=== PATIENT | male | born 1940 | race Caucasian/White ===

== ENCOUNTER 2019-04-16 10:16 | Emergency (ER) | payer MEDICARE, SELFPAY ==
[2019-04-16 10:17] VITALS: BP 128/89; PULSE 62; RESP 17; TEMP 36.2; O2SAT 97; BMI 21.7
--- NOTE | 2019-04-16 10:34 | VDLE_ITS ---
Reason For Study: Swelling RIGHT LEFT GSV is normal. CFV is compressible, spontaneous, phasic, CFV is compressible, spontaneous, phasic, competent, and demonstrates normal competent and demonstrates normal augmentation. augmentation. CFV at bifurcation is partially compressible. FV prox is partially compressible with minimal flow noted. Acute deep vein thrombosis is noted in the mid/distal FV, PopV, T/P Trunk, PTV, PeroV, GastrocV, SoleusV. Procedure Exam performed portable in ED. A preliminary report was called and/or faxed to Dr. Stahl. Interpretation Summary Acute deep vein thrombosis is noted in the right femoral vein. Acute deep vein thrombosis is noted in the right popliteal vein. Acute deep vein thrombosis is noted in the right tibio-peroneal trunk. Acute deep vein thrombosis is noted in the right posterior tibial vein. Acute deep vein thrombosis is noted in the right peroneal vein. Acute deep vein thrombosis is noted in the right gastrocnemius vein. Acute deep vein thrombosis is noted in the right soleus vein. The right common femoral vein is patent, compressible, and competent. The right greater saphenous vein appears patent and compressible segmentally. Ordering Physician: Oj Stahl Performed By: Nhung Boykin RVT
--- NOTE | 2019-04-16 10:37 | ED.DCSUM_ITS ---
- ER Visit Summary Date of Service: 04/16/19 Chief Complaint: Right leg pain History of Present Illness: The patient is a 78 M with right leg pain, swelling, and redness. Symptoms started gradually about a week ago. They will started about the same time. He never had this before. Nothing seemed to bring it on. He was previously well. Denies any recent surgery, immobilization, or travel. Denies any history of blood clots. Denies associated symptoms like wounds, fevers, shortness of breath, cough, chest pain, hemoptysis. Denies blood thinner use. Denies trauma. Physical Examination: Afebrile and vital signs unremarkable. Alert and oriented. No acute distress. Breathing comfortably. Right lower extremity shows asymmetric edema below the knee. There is also some erythema to his dorsal foot and ankle primarily but it does extend further proximally just distal to the knee. No other streaking or redness. Pulses are strong and equal. Good range of motion. No deformities. No bony tenderness. Calves slightly tender. Test Results: Ultrasound pending. Emergency Department Course and Treatment: We will check for DVT. This may also be an early cellulitis. Nothing to suggest joint or bone pathology. He is neurovascularly intact. Will reassess. Patient has a DVT starting with a partial occlusion of his common femoral and then distally. His CBC and BMP were unremarkable. INR and PTT were normal. Patient's HASBLED score was 1. Risks of inpatient versus outpatient therapy discussed. Patient would like to try outpatient therapy. He does not have a local doctor. I spoke with Dr. Houser who will follow up and evaluate for an underlying process. Risks of Eliquis were discussed. Patient will return right away for any complications. Plan will be discharged on Eliquis. Treatment Plan: As above Disposition: Discharge Impression: 1. Right lower extremity DVT This note was generated with [employer] dictation software. It may contain incorrect words, spelling, and punctuation that were not noted in review of the chart prior to signing ED Disposition - Plan for ED Patient: [facility] [Primary Care Provider] -
[2019-04-16 11:28] LABS: Absolute Lymphocyte Count 2.73 X10^3/ul (0.83-4.51); Absolute Neutrophil Count 5.1 X10^3/uL (2.0-7.7); Basophil# 0.05 X10^3/uL; Basophil% 0.6 % (0-1); Eosinophil# 0.18 X10^3/uL; Hematocrit 43.5 % (40-54); Hemoglobin 14.8 g/dl (13.0-16.5); Lymphocyte # 2.73 X10^3/ul (4.0); Lymphocyte % 30.7 % (19-41); Mean Corpuscular Hgb 30.5 pg (27.0-32.0); Mean Corpuscular Volume 89.5 fL (80-94); Mean Platelet Vol. 9.8 fl (6.2-12.0); Monocyte# 0.81 X10^3/uL; Monocyte% 9.1 % (0-10); Neutrophil # 5.09 X10^3/uL (2.7-7.7); Neutrophil % 57.2 % (47-70); Platelet Count 255 K/mm3 (150-450); RBC Distribution Width CV 12.6 % (11.6-14.6); RBC Distribution Width SD 40.5 fl (35.1-43.9); Red Blood Count 4.86 M/mm3 (4.6-6.2); White Blood Count 8.9 K/mm3 (4.4-11.0)
[2019-04-16 11:29] LABS: POSITIVE COUNT NO; POSITIVE DIFFERENTIAL NO; POSITIVE MORPHOLOGY NO
[2019-04-16 11:38] LABS: International Normalized Ratio 1.1; Partial Thromboplast Time 29.2 Seconds (24.1-36.2); Prothrombin Time (Protime)PT. 14.2 SECONDS (11.7-14.9)
[2019-04-16 11:41] LABS: Anion Gap 7 (5-15); BUN 17 mg/dL (7-18); BUN/Creat Ratio 18.7 RATIO (10-20); Calcium,Total 8.8 mg/dL (8.5-10.1); Chloride 107 mmol/L (98-107); Creatinine, Serum 0.91 mg/dL (0.70-1.30); EST Glomerular Filtration Rate 85 mL/min (>60); Est Glom Filt Rate - Afr Amer 103 mL/min (>60); Estimated Creatinine Clearance 66.46 ml/min; Glucose 115 mg/dL (74-106); Potassium 4.5 mmol/L (3.5-5.1); Sodium Level 140 mmol/L (136-145)
[2019-04-16 12:12] VITALS: BP 151/88; PULSE 57; RESP 15; O2SAT 97
--- NOTE | 2019-04-16 12:12 | ED.DEP ---
ED Disposition - Plan for ED Patient: Instructions: Treating Deep Vein Thrombosis Prescriptions: Apixaban [Eliquis] 5 mg PO BID 30 Days #74 tab Prescription Printed Referrals: Daquan Houser MD [NON-STAFF] -
== END 2019-04-16 12:39 | disposition home or self-care (01) ==
LOC: ED 10:41
PROVIDERS: Emergency Provider Emergency Medicine
DX: I82.411 Acute embolism and thrombosis of right femoral vein (principal); Z87.891 Personal history of nicotine dependence
CPT/HCPCS: 80048; 85025; 85610; 85730; 93971; 99283; A4216

== ENCOUNTER → 2019-05-03 | Outpatient (CLI) | payer MEDICARE, OTHER, SELFPAY ==
[2019-04-16 10:17] VITALS: BMI 21.7
[2019-05-03 18:02] LABS: Vitamin B12 564 pg/mL (211-911)
[2019-05-03 18:39] LABS: AST(SGOT) 20 U/L (15-37); Alanine Aminotransfer ALT/SGPT 25 U/L (16-61); Albumin, Serum 3.7 g/dL (3.2-5.0); Alkaline Phosphatase 66 U/L (45-117); Anion Gap 6 (5-15); BUN 16 mg/dL (7-18); BUN/Creat Ratio 16.5 RATIO (10-20); Calcium,Total 9.3 mg/dL (8.5-10.1); Chloride 106 mmol/L (98-107); Creatinine, Serum 0.97 mg/dL (0.70-1.30); EST Glomerular Filtration Rate 79 mL/min (>60); Est Glom Filt Rate - Afr Amer 96 mL/min (>60); Globulin 3.8 g/dL (2.2-4.2); Glucose 105 mg/dL (74-106); Potassium 4.2 mmol/L (3.5-5.1); Protein, Total 7.5 g/dL (6.4-8.2); Sodium Level 136 mmol/L (136-145); Thyroid Stim Hormone (TSH) 3.85 uIU/mL (0.358-3.74)
== END | disposition home or self-care (01) ==
LOC: MFPLAB 15:00
PROVIDERS: Family Provider Family Medicine; PCP Family Medicine; Referring Provider Family Medicine; Visit Provider Family Medicine
DX: R20.2 Paresthesia of skin (principal)
CPT/HCPCS: 36415; 80053; 82607; 82746; 84443

== ENCOUNTER → 2019-06-21 13:49 | Outpatient (CLI) | payer MEDICARE, OTHER, SELFPAY ==
[2019-06-13 15:30] VITALS: BMI 22.1
--- NOTE | 2019-06-21 13:50 | CT_ITS ---
STUDY: CT CHEST WITH CONTRAST REASON FOR EXAM: Male, 78 years old. Bladder cancer. DVT. RADIATION DOSAGE (If Supplied By Facility): CTDIvol = ( 12.05 ) mGy, DLP = ( 792.84 ) mGycm TECHNIQUE: Transaxial imaging was performed following intravenous administration of 100 IV Isovue 300. Individualized dose optimization techniques were used for this CT. COMPARISON: None. FINDINGS: There is hyperinflation of the lungs consistent with chronic obstructive lung disease (COPD). Small calcified plaques are seen along the anterior mid left hemithorax. There are no infiltrates or effusions seen. There is no demonstrated pleural abnormality. Normal heart and pericardium. Normal mediastinum. Normal hilar regions. Normal enhanced pulmonary arteries. Normal aorta arch and descending thoracic aorta. There are no demonstrated pulmonary emboli. Normal osseous structures. See separate report for CT of the abdomen and pelvis. CT/Chest WITH Contrast IMPRESSION: There are findings consistent with COPD. There is no evidence of acute chest disease. Electronically Signed: Christos Martines MD at 21:44 EDT , Service support ,
--- NOTE | 2019-06-21 13:50 | CT_ITS ---
STUDY: CT ABDOMEN AND PELVIS WITH CONTRAST REASON FOR EXAM: Male, 78 years old. Bladder cancer. RADIATION DOSAGE (If Supplied By Facility): CTDIvol = ( 12.05 ) mGy, DLP = ( 792.84 ) mGycm TECHNIQUE: Transaxial images were obtained from the dome of the diaphragm to the symphysis pubis with oral contrast. 100 IV/Oral Isovue 300 was administered. Sagittal and coronal images were reconstructed. Individualized dose optimization techniques were used for this CT. COMPARISON: None. FINDINGS: The visualized lung bases are unremarkable. The visualized portions of the heart are within normal limits. Normal liver. There are multiple gallstones. Normal spleen. Normal pancreas. Normal bilateral adrenal glands. Right kidney has a 2 mm nonobstructing mid renal stone, otherwise normal right kidney. Left kidney has a 5 mm nonobstructing mid renal stone. There is a 3.8 cm lower left renal cyst. Evaluation of the GI tract is limited by absence of oral contrast. Cannot exclude stomach wall thickening. No dilated loops of bowel or evidence for obstruction. Cannot exclude segmental thickening of the hamm of the small or large bowel. Cannot exclude enteritis or colitis. Moderate diffuse fecal retention. Severe sigmoid diverticulosis without definite diverticulitis. Appendix within normal limits. Normal abdominal aorta. Normal inferior vena cava. Normal retroperitoneum. Normal urinary bladder. There is enlargement of the prostate gland. Surgical changes seen consistent with bilateral inguinal hernia repairs. Degenerative disc disease at L5-S1, otherwise normal osseous structures. CT/Abdomen/Pelvis WITH Contrast IMPRESSION: Cholelithiasis. Nonobstructing renal stones. Marked sigmoid diverticulosis without diverticulitis. Electronically Signed: Christos Martines MD at 21:25 EDT , Service support ,
== END ==
PROVIDERS: Family Provider Family Medicine; PCP Family Medicine; Referring Provider Internal Medicine Medical Oncology; Visit Provider Internal Medicine Medical Oncology
DX: I82.409 Acute embolism and thrombosis of unspecified deep veins of unspecified lower extremity (principal); Z85.51 Personal history of malignant neoplasm of bladder
CPT/HCPCS: 71260; 74177; Q9967

== ENCOUNTER → 2019-08-01 11:01 | Outpatient (CLI) | payer MEDICARE, OTHER, SELFPAY ==
[2019-06-26 14:57] VITALS: BMI 21.9
[2019-08-01 13:22] LABS: Free T3 2.7 pg/mL (2.18-3.98); T4 Total, Thyroxin 8.2 ug/dL (4.5-12.1); Thyroid Stim Hormone (TSH) 2.53 uIU/mL (0.358-3.74)
== END ==
PROVIDERS: Family Provider Family Medicine; PCP Family Medicine; Visit Provider Family Medicine
DX: R79.89 Other specified abnormal findings of blood chemistry (principal)
CPT/HCPCS: 36415; 84436; 84443; 84481

== ENCOUNTER 2019-08-06 13:58 | Emergency (ER) | payer MEDICARE, SELFPAY ==
[2019-06-26 14:57] VITALS: BMI 21.9
[2019-08-06 14:01] VITALS: BP 167/96; PULSE 61; RESP 19; TEMP 36.4; O2SAT 98; BMI 21.7
--- NOTE | 2019-08-06 14:22 | RAD_ITS ---
STUDY: X-RAY - LEFT SHOULDER REASON FOR EXAM: Male, 79 years old. Pain and swelling following injury. TECHNIQUE: 4 view(s) of the shoulder. COMPARISON: None. FINDINGS: There is mild degenerative arthrosis of the glenohumeral articulation. There is hypertrophic osteoarthrosis of the acromioclavicular joint with inferior osseous spur formation. Normal acromion. Normal humeral head and visualized proximal humerus. Soft tissue swelling. Normal visualized pulmonary apex. RAD/Shoulder min 2 Views IMPRESSION: Soft tissue swelling. Degenerative changes. Electronically Signed: Dilip Chauhan, at 14:59 EST , Service support ,
--- NOTE | 2019-08-06 15:11 | ED.VIS.GEN ---
History of Present Illness Chief Complaint: Upper Extremity Injury Informant: Patient Onset: Today Context: Sudden Onset Timing: Continuous Narrative: Patient is an 79-year-old male currently on Eliquis for DVT that was diagnosed in April, non-provoked, presenting with left shoulder injury. Patient states his truck door swung back and hit his left shoulder. He immediately had pain and swelling. He states the swelling progressed pretty quickly over his shoulder. He has associated pain that feels like tightness. Patient denies any numbness or tingling of his left arm. He states he is right-hand dominant. He denies any other injuries or head injury. Because of the swelling and pain he came to the emergency room to be evaluated further. Past Medical History - Allergies and Home Meds Allergies/Adverse Reactions: Allergies Sulfa (Sulfonamide Antibiotics) Adverse Reaction (Verified 08/06/19 14:00) Rash Primary Care Physician: Lalo Chou MD [Primary Care Provider] - Smoking Status: Former smoker Review of Systems All systems negative except as indicated Musculoskeletal: Reports: - - left shoulder pain and swelling Physical Exam Vital Signs/Narrative: Vital Signs Temp Pulse Resp BP Pulse Ox 08/06/19 14:01 97.5 F L 61 19 H 167/96 H 98 Inital Vital Signs reviewed: Yes General: Well nourished, Well developed, No Acute Distress Head: Normocephalic, Atraumatic Eyes: Perrl, EOMI ENT: Moist mucous membranes, No rhinorrhea Neck: Supple, Nontender Cardiovascular: Regular rate, Regular rhythm, No murmurs Respiratory: No distress, CTA bilaterally, Chest nontender Abdomen: Soft, Nontender, Nondistended, Normal bowel sounds Back: Nontender, Normal Inspection Extremities: Tenderness - left shoulder , Edema - soft tissue swelling left anterior chest, 10 cm x 8 cm, nonpulsitile , - - Normal distal radial pulses Skin: Normal color, No rash. Negative for: Trauma Neurological: Alert, Oriented x3, Cranial nerves II-XII grossly intact, Normal Strength, Normal Sensation Psychological: Normal affect, Normal Mood Diagnostic/Tx/Re-eval Clinical Impression(s) from Imaging Studies Shoulder X-Ray 08/06/19 14:22 IMPRESSION: Soft tissue swelling. Degenerative changes. Electronically Signed: Dilip Chauhan, at 14:59 EST , Service support , - Medical Decision Making Is evaluated after an injury to his left shoulder. His car door swung and hit him. He x-ray shows soft tissue swelling. On exam patient has a significant hematoma that is not pulsatile. Patient is hemodynamically stable and while he has some pain at the site he is otherwise asymptomatic. Discussed with his PCP, Dr. Lalo Chou, who states his plan initially was to reevaluate the patient in a week for resolution of his DVT and possibly stop the Eliquis. Repeat ultrasound was performed today with hopes of holding his Eliquis however ultrasound shows a partially mobile right proximal femoral vein DVT. Because of this I do not think it be safe to stop his Eliquis. Discussed with Dr. Apodaca, orthopedics on-call, who recommends stopping the Eliquis if possible. He states that there is no significant tenting of the skin and does not need emergent orthopedic evaluation and the patient should be stable for follow-up with his PCP. He states he is available if needed. Dr. Chou is contacted again with the findings. He is agreeable the patient should not stop his Eliquis at this point. Patient is counseled on compression, ice and signs for return to the emergency room including expanding hematoma. Patient verbalizes agreement understand this plan. He is discharged home in stable condition. ED Disposition - Plan for ED Patient: Disposition: Home or Assisted Living Diagnosis: Traumatic hematoma of left shoulder, Deep vein thrombosis (DVT) of femoral vein of right lower extremity Instructions: Hematoma Referrals: Lalo Chou MD [Primary Care Provider] - Additional Instructions: Make sure you keep your follow-up appointment. Continue to take your Eliquis. He may take Tylenol as needed for pain. It is safe to use Aspercreme. Return to the emergency room if you feel that it is getting larger, you start to feel lightheaded or if you have weakness/numbness of your left arm/hand.
--- NOTE | 2019-08-06 15:19 | NURSING ---
PAGED DR Jerardo VACA
--- NOTE | 2019-08-06 15:26 | VDLE_ITS ---
Reason For Study: DVT RIGHT LEFT GSV is normal. GSV is normal. CFV is compressible, spontaneous, phasic, CFV is compressible, spontaneous, phasic, competent and demonstrates normal competent, and demonstrates normal augmentation. augmentation. POP V is compressible, spontaneous, phasic, FV is compressible, spontaneous, phasic, competent and demonstrates normal competent and demonstrates normal augmentation. augmentation. T/P Trunk is compressible. POP V is compressible, spontaneous, phasic, PTV is compressible. competent and demonstrates normal RT PerV is compressible. augmentation. Rt FV prox/mid is partially compressible T/P Trunk is compressible. consistent with acute DVT, DVT appears PTV is compressible. unstable/slightly mobile. LT PerV is compressible. Procedure Exam performed portable in ED. A preliminary report was called and/or faxed to Dr. Cornelius. Interpretation Summary Acute deep venous thrombosis right proximal to mid femoral vein with mobile thrombus. No evidence for acute deep venous thrombosis left lower extremity Patent and compressible bilateral great saphenous veins Ordering Physician: Fiona Cornelius Referring Physician: Lalo Chou Performed By: Cece Murray, MARIA G, RVT
[2019-08-06] MEDS: Acetaminophen 500 MG Tablet PO (16:17)
== END 2019-08-06 16:54 | disposition home or self-care (01) ==
PROVIDERS: Emergency Provider Emergency Medicine; Family Provider Family Medicine; PCP Family Medicine
DX: S40.012A Contusion of left shoulder, initial encounter (principal); I82.411 Acute embolism and thrombosis of right femoral vein; W22.8XXA Striking against or struck by other objects, initial encounter; Y93.9 Activity, unspecified; Y92.9 Unspecified place or not applicable; Z79.01 Long term (current) use of anticoagulants; Z87.891 Personal history of nicotine dependence
CPT/HCPCS: 73030; 93970; 99282

== ENCOUNTER → 2019-10-23 07:37 | Outpatient (CLI) | payer MEDICARE, SELFPAY ==
--- NOTE | 2019-10-23 07:41 | VDLE_ITS ---
Reason For Study: DVT RIGHT LEFT GSV is normal. CFV is compressible, spontaneous, phasic, CFV is compressible, spontaneous, phasic, competent, and demonstrates normal competent and demonstrates normal augmentation. augmentation. FV is compressible, spontaneous, phasic, competent and demonstrates normal augmentation. POP V is compressible, spontaneous, phasic, competent and demonstrates normal augmentation. T/P Trunk is compressible. PTV is compressible. RT PerV is compressible. Right FV prox is partially compressible with bright echoes noted within the lumen. Procedure Exam performed in department. A preliminary report was called and/or faxed to José Antonio. Interpretation Summary Chronic deep venous thrombosis right proximal femoral vein Patent and compressible right great saphenous vein Patent and compressible left common femoral vein Refer to previous venous duplex imaging of August 06, 2019 demonstrating acute deep vein thrombosis of the right proximal to mid femoral vein Ordering Physician: Lalo Chou Referring Physician: Lalo Chou MD Performed By: Nhung Boykin RVT
== END ==
PROVIDERS: Family Provider Family Medicine; PCP Family Medicine; Referring Provider Family Medicine; Visit Provider Family Medicine
DX: I82.4Y1 Acute embolism and thrombosis of unspecified deep veins of right proximal lower extremity (principal)
CPT/HCPCS: 93971

== ENCOUNTER 2022-09-06 14:56 | Outpatient (CLI) | payer MEDICARE, SELFPAY ==
[2022-09-06 18:16] LABS: Cholesterol 160 mg/dL (200); EST Glomerular Filtration Rate 98 mL/min (>60); Est Glom Filt Rate - Afr Amer 118 mL/min (>60); High Density Lipoprotein 42 mg/dL; Thyroid Stim Hormone (TSH) 2.36 uIU/mL (0.358-3.74); Triglycerides 65 mg/dL; Very Low Density Lipoprotein 13 mg/dL (5-40)
== END 2022-09-06 23:59 | disposition home or self-care (01) ==
PROVIDERS: PCP Family Medicine; Referring Provider Family Medicine; Visit Provider Family Medicine
DX: Z00.00 Encounter for general adult medical examination without abnormal findings (principal); R79.89 Other specified abnormal findings of blood chemistry; R94.6 Abnormal results of thyroid function studies
CPT/HCPCS: 36415; 80061; 82565; 84439; 84443

== ENCOUNTER → 2023-06-14 | Outpatient (CLI) | payer OTHER, SELFPAY ==
--- NOTE | 2023-06-14 06:45 | CT_ITS ---
STUDY: CT SOFT TISSUE NECK WITH CONTRAST REASON FOR EXAM: Male, 82 years old. [id number]. Intermittent hemoptysis. Weight loss. History of bladder carcinoma. RADIATION DOSAGE (If Supplied By Facility): CTDIvol = ( 8.9 ) mGy, DLP = ( 777.34 ) mGycm TECHNIQUE: The patient was scanned in a multi-detector CT scanner. High resolution transaxial imaging was performed following intravenous administration of IV 100mL Isovue-300. Sagittal and coronal images were reconstructed. Individualized dose optimization techniques were used for this CT. COMPARISON: None. FINDINGS: Normal bilateral parotid glands. Normal bilateral financial reporting specialist spaces. Normal bilateral parapharyngeal spaces. Normal bilateral carotid spaces. Normal bilateral sublingual and submandibular glands and spaces. Normal visualized nasopharynx. Normal retropharyngeal space. Normal perivertebral space. Normal visualized bilateral faucial tonsils. The visualized tongue, tongue base and oropharynx are normal. The visualized cervical lymph nodes (levels I-) are within normal size limits, and maintain normal morphology. There is no demonstrated solid or cystic mass lesion. There is no abnormal contrast enhancement. Normal epiglottis, bilateral vallecula and hypopharynx. The pre-epiglottic and paraglottic adipose spaces are normal. Normal visualized bilateral piriform sinuses, aryepiglottic folds, vocal cords, and arytenoid-cricoid articulations. Normal subglottic trachea. Subcentimeter hypodensities are seen in both lobes of the thyroid gland suggestive of a colloid cyst. Normal visualized pulmonary apices. Normal visualized paranasal sinuses. There is multilevel degenerative changes of the cervical spine. CT/Soft Tissue Neck WITH Contrast IMPRESSION: Small subcentimeter hypodensities are seen in both lobes of the thyroid gland suggestive of colloid cysts. Electronically Signed: Dilip Chauhan MD at 13:21 EDT ,
--- NOTE | 2023-06-14 06:45 | CT_ITS ---
STUDY: CT CHEST, ABDOMEN T PELVIS WITH CONTRAST REASON FOR EXAM: Male, 82 years old. ABNORMAL WEIGHT LOSS. Intermittent hemoptysis. RADIATION DOSAGE (If Supplied By Facility): CTDIvol = ( 8.9 ) mGy, DLP = ( 777.34 ) mGycm TECHNIQUE: Transaxial imaging was performed following intravenous administration of IV 100mL Isovue-300. Individualized dose optimization techniques were used for this CT. COMPARISON: Comparison is made with prior CT scan of the chest dated June 21, 2019. FINDINGS: CHEST Minimal scarring at the lung apices. Hyperinflation. Calcified pleural plaques in the anterior left hemithorax. Mild linear scarring at the lung bases. Normal heart and pericardium. No coronary artery calcification is seen. Normal mediastinum. Normal hilar regions. Normal unenhanced pulmonary arteries. There is atherosclerotic calcification of the aortic arch and descending thoracic aorta. There are degenerative changes of the thoracic spine. ABDOMEN Normal liver. The patient is status post cholecystectomy. Normal spleen. Normal pancreas. Normal bilateral adrenal glands. Normal right kidney. There is a 3.4cm x 3.1 cm cyst in the posterior upper pole of the left kidney. Normal visualized stomach. Normal small intestine. Normal colon. The appendix is visualized and appears normal. There is diffuse atherosclerotic calcification of the abdominal aorta and its major visceral branches, without a demonstrated aneurysm. Normal inferior vena cava. Normal retroperitoneum. Evidence of prior mesh repair of a lower anterior abdominal wall hernia. Normal osseous structures. PELVIS Distended urinary bladder. Diffuse bladder wall thickening worse along the anterior aspect of the bladder on the left side. Heterogeneous enlargement of the prostate. The prostate measures 5.8 cm x 5.4 cm. Normal visualized small intestine. Normal visualized colon. There is no pelvic fluid. There is no pelvic lymphadenopathy or mass lesion. There is diffuse atherosclerotic calcification of the pelvic arteries. Normal abdominal wall. There are mild degenerative changes of the visualized lumbar spine. CT/CT Chest, Abd, Pel w/Contrast IMPRESSION: Diffuse bladder wall thickening more prominent on the anterior left side of the bladder Heterogeneous enlargement of the prostate with indentation of the bladder base. Status post anterior lower abdominal wall ventral hernia repair. Left renal cyst. Electronically Signed: Dilip Chauhan MD at 13:28 EDT ,
== END | disposition home or self-care (01) ==
LOC: CT 06:44
PROVIDERS: PCP Family Medicine; Referring Provider Internal Medicine; Visit Provider Internal Medicine
DX: R63.4 Abnormal weight loss (principal); R04.2 Hemoptysis
CPT/HCPCS: 70491; 71260; 74177; Q9967

== ENCOUNTER → 2024-05-23 | Outpatient (CLI) | payer OTHER, SELFPAY ==
--- NOTE | 2024-05-23 12:45 | CT_ITS ---
STUDY: CT CHEST WITHOUT CONTRAST REASON FOR EXAM: Male, 83 years old. Hemoptysis RADIATION DOSAGE (If Supplied By Facility): CTDIvol = ( 7.15 ) mGy, DLP = ( 289.40 ) mGycm TECHNIQUE: Transaxial imaging was performed without the administration of intravenous contrast material. Multiplanar coronal and sagittal images were reformatted. Individualized dose optimization techniques were used for this CT. COMPARISON: Comparison is made with prior study dated June 14, 2023. FINDINGS: CHEST Hyperinflation. Emphysematous changes more pronounced in the upper lobes. Calcified left pleural plaques. Mild scarring at the left lung base and right lower lobe. There are calcifications of the coronary arteries. Normal mediastinum. Normal hilar regions. Normal unenhanced pulmonary arteries. There is atherosclerotic calcification of the aortic arch with tortuosity and elongation of the aortic arch and descending thoracic aorta. There are multi-level degenerative changes of the thoracic spine. Stable cyst in the upper pole of the left kidney. CT/Chest without Contrast IMPRESSION: Hyperinflation and emphysematous changes with mild scarring as described. No pulmonary nodular density is seen. Electronically Signed: Dilip Chauhan MD at 10:41 EDT ,
== END | disposition home or self-care (01) ==
LOC: CT 12:44
PROVIDERS: PCP Family Medicine
DX: R04.2 Hemoptysis (principal)
CPT/HCPCS: 71250

== ENCOUNTER → 2024-09-13 | Outpatient (CLI) | payer MEDICARE, SELFPAY ==
--- NOTE | 2024-09-13 14:45 | RAD_ITS ---
EXAM: XR CHEST, 2 VIEWS CLINICAL INDICATION: LUNG NODULE TECHNIQUE: Frontal and lateral views of the chest. COMPARISON: CT chest 05/23/2024 FINDINGS: LUNGS AND PLEURAL SPACES: Benign calcified pleural plaques on the left, consistent with the prior CT. No acute airspace disease. No suspicious pulmonary nodules. No pneumothorax. No effusion. HEART: Unremarkable. Cardiac silhouette not enlarged. MEDIASTINUM: Central airways and mediastinal contour are unremarkable. BONES/JOINTS: Unremarkable. No acute fracture. SOFT TISSUES: Unremarkable. RAD/Chest PA and Lateral IMPRESSION: Benign calcified pleural plaques on the left, consistent with the prior CT. Electronically Signed: Richard Casillas MD at 11:22 EST ,
[2024-09-13 17:43] LABS: Absolute Neutrophil Count 5.7 X10^3/uL (2.0-7.7); Basophil# 0.09 X10^3/uL; Basophil% 0.9 % (0-1); Eosinophil# 0.21 X10^3/uL; Eosinophils% 2.2 % (0-5); Hematocrit 45.8 % (40-54); Hemoglobin 14.6 g/dL (13.0-16.5); Lymphocyte % 28.3 % (19-41); Mean Corp Hgb Conc 31.9 g/dL (32-36); Mean Corpuscular Hgb 29.7 pg (27.0-32.0); Mean Corpuscular Volume 93.1 fL (80-94); Mean Platelet Vol. 10.7 fl (6.2-12.0); Monocyte# 0.85 X10^3/uL; Monocyte% 8.9 % (0-10); NRBC Flagged by Analyzer 0 % (0-5); Neutrophil # 5.67 X10^3/uL (2.7-7.7); Neutrophil % 59.5 % (47-70); Platelet Count 278 K/mm3 (150-450); RBC Distribution Width CV 12.8 % (11.6-14.6); RBC Distribution Width SD 43.8 fl (35.1-43.9); Red Blood Count 4.92 M/mm3 (4.6-6.2); White Blood Count 9.5 K/mm3 (4.4-11.0)
[2024-09-13 18:11] LABS: ALB/GLOB Ratio 1.2 RATIO (0.9-2.4); AST(SGOT) 15 U/L (15-37); Alanine Aminotransfer ALT/SGPT 15 U/L (16-61); Albumin, Serum 3.8 g/dL (3.2-5.0); Alkaline Phosphatase 88 U/L (45-117); Anion Gap 6 (5-15); BUN 24 mg/dL (7-18); BUN/Creat Ratio 25.3 RATIO (10-20); Calcium,Total 9.6 mg/dL (8.5-10.1); Chloride 106 mmol/L (98-107); Creatinine, Serum 0.95 mg/dL (0.70-1.30); EST Glomerular Filtration Rate 80 mL/min (>60); Est Glom Filt Rate - Afr Amer 97 mL/min (>60); Globulin 3.3 g/dL (2.2-4.2); Glucose 109 mg/dL (74-106); PSA,Total - Annual Screen 6.14 ng/mL (0.00-4.00); Potassium 4.3 mmol/L (3.5-5.1); Protein, Total 7.1 g/dL (6.4-8.2); Sodium Level 139 mmol/L (136-145)
== END | disposition home or self-care (01) ==
PROVIDERS: PCP Family Medicine; Referring Provider Family Medicine; Visit Provider Family Medicine
DX: C67.9 Malignant neoplasm of bladder, unspecified (principal); Z12.5 Encounter for screening for malignant neoplasm of prostate; R91.1 Solitary pulmonary nodule
CPT/HCPCS: 36415; 71046; 80053; 84153; 85025; G0103

== ENCOUNTER → 2025-03-11 | Outpatient (CLI) | payer MEDICARE, SELFPAY ==
[2025-03-11 12:54] LABS: PSA,Total- Diagnostic 6.75 ng/mL (0.00-4.00)
== END | disposition home or self-care (01) ==
LOC: MTLAB 09:27
PROVIDERS: PCP Family Medicine; Referring Provider Family Medicine; Visit Provider Family Medicine
DX: R97.20 Elevated prostate specific antigen [PSA] (principal)
CPT/HCPCS: 36415; 84153

== ENCOUNTER 2025-06-17 00:17 | Emergency (ER) | payer MEDICARE, SELFPAY ==
[2025-06-17 00:17] VITALS: BP 135/108; PULSE 75; RESP 18; TEMP 36.6; O2SAT 98; BMI 16.9
--- OUTSIDE RECORDS SUMMARY | 2025-06-17 00:53 | XMS RPT_ITS | CCD ---
Author Organization [facility] Care Team Providers Care Manager Battery Name Role Phone Bahman Heath MD Unavailable [phone] Lalo Chou MD Primary Care Provider [phone] José Antonio MAYEN, Dr. May Attending Provider Dr. Lalo Chou MD Referring Provider Lalo Chou Primary Care Unavailable Lalo Chou Attending Unavailable Lalo Chou Referring Unavailable Lalo Chou Primary Care Unavailable Lalo Chou Attending Unavailable Lalo Chou Referring Unavailable Lalo Chou Primary Care Unavailable ZOYA BELL Attending Unavailable ZOYA BELL Referring Unavailable Allergies Allergy Classification Reported Allergen(s) Allergy Type Date of Onset Reaction(s) Facility (1 source) Sulfamethoxazole / Trimethoprim Drug Allergy 07-07-20 17 had to go to ER [facility] Work Phone: (3 sources) Sulfonamides (Antibiotic) Propensity to adverse reactions 11-20-19 Rash [facility] (1 source) Sulfonamides (Antibiotic) Drug allergy (disorder) 11-20-19 [facility] Repository Medications Current Medications Medication Drug Class(es) Dates Sig (Normalized) Sig (Original) apixaban 5 mg oral tablet (6 sources) Factor Xa Inhibitor Start: 06-08-2019 take 1 tablet by mouth twice daily Apixaban 5 MG tablet Active 5 mg PO TWICE A DAY June 08, 2019 12:00am Start: 04-16-2019 End: 05-16-2019 take 2 tablets by mouth twice daily, then take 1 tablet by mouth twice daily Apixaban 5 MG tablet Discontinued 5 mg PO TWICE A DAY 74 April 16, 2019 12:00am May 15, 2019 12:00am May 16, 2019 12:07am Take 2 tablets by mouth twice a day for 7 days, then take 1 tablet by mouth twice a day after that Problems Active Problems Problem Classification Problem Date Documented Da te Episodic/Chronic Cancer of bladder (1 source) Malignant neoplasm of bladder, unspecified; Translations: [Malignant neoplasm of bladder, unspecified] Onset: 10-16-2024 Chronic Cancer of bladder (3 sources) H/O: malignant neoplasm; Translations: [Personal history of malignant neoplasm of bladder] 08-06-2019 Episodic Other screening for suspected conditions (not mental disorders or infectious disease) (1 source) Elevated prostate specific antigen [PSA]; Translations: [Elevated prostate specific antigen [PSA]] Onset: 03-13-2025 Episodic Phlebitis; thrombophlebitis and thromboembolism (9 sources) H/O: Deep vein thrombosis; Translations: [Personal history of other venous thrombosis and embolism] 08-06-2019 Episodic Superficial injury; contusion (3 sources) Contusion of shoulder region; Translations: [Contusion of left shoulder, initial encounter] 08-07-2019 Episodic Past or Other Problems Problem Classification Problem Date Documented Da te Episodic/Chronic Other lower respiratory disease (1 source) Hemoptysis; Translations: [Hemoptysis] Onset: 06-05-2024 Episodic Other skin disorders (1 source) Skin lesion; Translations: [Disorder of the skin and subcutaneous tissue, unspecified] Onset: 07-07-2017 07-07-2017 Episodic Results Test Name Value Interpretation Reference Range Facility PSA,Total- Diagnosticon 06-0 PSA, DIAGNOSTIC 6.75 ng/mL High 0.00-4.00 [facility] Comment on above: Order Comment: Order Date: 09/19/24 Order Info: 0783-1 - PSAD Result Comment: This test was performed using the [employer] tPSA method. Measured values of a patient??sample can vary depending on the testing procedure used. PSA values determined on patient samples by different testing procedures cannot be used interchangeably. If there is a change in PSA assays while monitoring therapy, sequential testing should be performed to confirm baseline values. Performed By: #### L 501.9940 #### [facility] [address] [place], [address] CBC W/Diff, Automatedon 09-02 Absolute Lymph 2.70 X10 3/uL Normal 0.83-4.51 [facility] Comment on above: Order Comment: Order Date: 09/13/24 Order Info: 0184-1 - CBCD Performed By: #### L 501.9910, L100.0100, L500.4050 #### [facility] [address] [place], [address] Absolute Neut 5.7 X10 3/uL Normal 2.0-7.7 [facility] Comment on above: Order Comment: Order Date: 09/13/24 Order Info: 0184-1 - CBCD Performed By: #### L 501.9910, L100.0100, L500.4050 #### [facility] [address] [place], [address] Basophils/100 WBC (Bld) 0.9 % Normal 0-1 [facility] Comment on above: Order Comment: Order Date: 09/13/24 Order Info: 018-1 - CBCD Performed By: #### L 501.9910, L100.0100, L500.4050 #### [facility] [address] [place], [address] Eosinophils/100 WBC (Bld) 2.2 % Normal 0-5 [facility] Comment on above: Order Comment: Order Date: 09/13/24 Order Info: 018-1 - CBCD Performed By: #### L 501.9910, L100.0100, L500.4050 #### [facility] [address] [place], [address] Erythrocyte distribution width (RBC) [Ratio] 12.8 % Normal 11.6-14.6 [facility] Comment on above: Order Comment: Order Date: 09/13/24 Order Info: 0184-1 - CBCD Performed By: #### L 501.9910, L100.0100, L500.4050 #### [facility] [address] [place], [address] Hematocrit (Bld) [Volume fraction] 45.8 % Normal 40-54 [facility] Comment on above: Order Comment: Order Date: 09/13/24 Order Info: 018- - CBCD Performed By: #### L 501.9910, L100.0100, L500.4050 #### [facility] [address] [place], [address] Hemoglobin (Bld) [Mass/Vol] 14.6 g/dL Normal 13.0-16.5 [facility] Comment on above: Order Comment: Order Date: 09/13/24 Order Info: 018- - CBCD Performed By: #### L 501.9910, L100.0100, L500.4050 #### [facility] [address] [place], [address] IG% 0.200 Normal 0.0-0.9 [facility] Comment on above: Order Comment: Order Date: 09/13/24 Order Info: 018- - CBCD Result Comment: IG% - Immature Granulocytes (promyelocytes, myelocytes and metamyelocytes) > 1% indicates that a LEFT SHIFT is Present. Performed By: #### L 501.9910, L100.0100, L500.4050 #### [facility] [address] [place], [address] Lymphocytes/100 WBC (Bld) 28.3 % Normal 19-41 [facility] Comment on above: Order Comment: Order Date: 09/13/24 Order Info: 018- - CBCD Performed By: #### L 501.9910, L100.0100, L500.4050 #### [facility] [address] [place], [address] MCH (RBC) [Entitic mass] 29.7 pg Normal 27.0-32.0 [facility] Comment on above: Order Comment: Order Date: 09/13/24 Order Info: 018- - CBCD Performed By: #### L 501.9910, L100.0100, L500.4050 #### [facility] [address] [place], [address] MCHC (RBC) [Mass/Vol] 31.9 g/dL Low 32-36 [facility] Comment on above: Order Comment: Order Date: 09/13/24 Order Info: 0184-1 - CBCD Performed By: #### L 501.9910, L100.0100, L500.4050 #### [facility] [address] [place], [address] MCV (RBC) [Entitic vol] 93.1 fL Normal 80-94 [facility] Comment on above: Order Comment: Order Date: 09/13/24 Order Info: 0184-1 - CBCD Performed By: #### L 501.9910, L100.0100, L500.4050 #### [facility] [address] [place], [address] Monocytes/100 WBC (Bld) 8.9 % Normal 0-10 [facility] Comment on above: Order Comment: Order Date: 09/13/24 Order Info: 0184-1 - CBCD Performed By: #### L 501.9910, L100.0100, L500.4050 #### [facility] [address] [place], [address] Neutrophils/100 WBC (Bld) 59.5 % Normal 47-70 [facility] Comment on above: Order Comment: Order Date: 09/13/24 Order Info: 0184-1 - CBCD Performed By: #### L 501.9910, L100.0100, L500.4050 #### [facility] [address] [place], [address] Nucleated RBC (Bld) [#/Vol] 0 10*3/uL Normal 0-5 [facility] Comment on above: Order Comment: Order Date: 09/13/24 Order Info: 0184-1 - CBCD Performed By: #### L 501.9910, L100.0100, L500.4050 #### [facility] [address] [place], [address] Platelet mean volume (Bld) [Entitic vol] 10.7 fL Normal 6.2-12.0 [facility] Comment on above: Order Comment: Order Date: 09/13/24 Order Info: 018-1 - CBCD Performed By: #### L 501.9910, L100.0100, L500.4050 #### [facility] [address] [place], [address] Platelets (Bld) [#/Vol] 278 10*3/uL Normal 150-450 [facility] Comment on above: Order Comment: Order Date: 09/13/24 Order Info: 018- - CBCD Performed By: #### L 501.9910, L100.0100, L500.4050 #### [facility] [address] [place], [address] RBC (Bld) [#/Vol] 4.92 10*6/uL Normal 4.6-6.2 [facility] Comment on above: Order Comment: Order Date: 09/13/24 Order Info: 018- - CBCD Performed By: #### L 501.9910, L100.0100, L500.4050 #### [facility] [address] [place], [address] RDW SD 43.8 fl Normal 35.1-43.9 [facility] Comment on above: Order Comment: Order Date: 09/13/24 Order Info: 018-1 - CBCD Performed By: #### L 501.9910, L100.0100, L500.4050 #### [facility] [address] [place], [address] WBC (Bld) [#/Vol] 9.5 10*3/uL Normal 4.4-11.0 [facility] Comment on above: Order Comment: Order Date: 09/13/24 Order Info: 0184-1 - CBCD Performed By: #### L 501.9910, L100.0100, L500.4050 #### [facility] [address] [place], [address] Chest PA and Lateralon 09-13 Chest PA and Lateral [facility] [address] [place] [address] Chest PA and Lateral MR#: [id number] Acct: [id number] Name: JAY PIÑA ENID Rep #: [id number] : 1940 M 84 From: Richard Casillas MD PCP: Dr. Lalo Chou MD Status: REG CLI Study: Chest PA and Lateral Date of Exam: 09/13/24 Exam# [id number] Ordering Dr: Lalo Chou MD [id number] EXAM: XR CHEST, 2 VIEWS CLINICAL INDICATION: LUNG NODULE TECHNIQUE: Frontal and lateral views of the chest. COMPARISON: CT chest 05/23/2024 FINDINGS: LUNGS AND PLEURAL SPACES: Benign calcified pleural plaques on the left, consistent with the prior CT. No acute airspace disease. No suspicious pulmonary nodules. No pneumothorax. No effusion. HEART: Unremarkable. Cardiac silhouette not enlarged. MEDIASTINUM: Central airways and mediastinal contour are unremarkable. BONES/JOINTS: Unremarkable. No acute fracture. SOFT TISSUES: Unremarkable. RAD/Chest PA and Lateral IMPRESSION: Benign calcified pleural plaques on the left, consistent with the prior CT. Electronically Signed: Richard Casillas MD at 11:22 EST , CC: Dr. Lalo Chou MD Attendant Self Service Store: Signed Normal [facility] Comprehensive Metabolic Prof ilon 09-13-2024 Albumin [Mass/Vol] 3.8 g/dL Normal 3.2-5.0 [facility] Comment on above: Order Comment: Order Date: 09/13/24 Order Info: 0786-1 - CMP Order Info: 2857-1 - PSA Performed By: #### L 501.9910, L100.0100, L500.4050 #### [facility] [address] [place], [address] Albumin/Globulin [Mass ratio] 1.2 {ratio} Normal 0.9-2.4 [facility] Comment on above: Order Comment: Order Date: 09/13/24 Order Info: 0786-1 - CMP Order Info: 2857-1 - PSA Performed By: #### L 501.9910, L100.0100, L500.4050 #### [facility] [address] [place], [address] ALK P 88 U/L Normal 45-117 [facility] Comment on above: Order Comment: Order Date: 09/13/24 Order Info: 0786-1 - CMP Order Info: 2857-1 - PSA Performed By: #### L 501.9910, L100.0100, L500.4050 #### [facility] [address] [place], [address] ALT [Catalytic activity/Vol] 15 U/L Low 16-61 [facility] Comment on above: Order Comment: Order Date: 09/13/24 Order Info: 0786-1 - CMP Order Info: 2857-1 - PSA Performed By: #### L 501.9910, L100.0100, L500.4050 #### [facility] [address] [place], [address] AST [Catalytic activity/Vol] 15 U/L Normal 15-37 [facility] Comment on above: Order Comment: Order Date: 09/13/24 Order Info: 0786-1 - CMP Order Info: 2857-1 - PSA Performed By: #### L 501.9910, L100.0100, L500.4050 #### [facility] [address] [place], [address] Bilirubin [Mass/Vol] 0.40 mg/dL Normal 0.20-1.00 [facility] Comment on above: Order Comment: Order Date: 09/13/24 Order Info: 0786- - CMP Order Info: 1 - PSA Result Comment: For patients on eltrombopag therapy, use of Dimension Eminence TBIL is not recommended. Performed By: #### L 501.9910, L100.0100, L500.4050 #### [facility] [address] [place], [address] BUN/CRE 25.3 RATIO High 10-20 [facility] Comment on above: Order Comment: Order Date: 09/13/24 Order Info: 0786- - CMP Order Info: 28504-02 - PSA Performed By: #### L 501.9910, L100.0100, L500.4050 #### [facility] [address] [place], [address] CA,Total 9.6 mg/dL Normal 8.5-10.1 [facility] Comment on above: Order Comment: Order Date: 09/13/24 Order Info: 0786- - CMP Order Info: 28504-02 - PSA Performed By: #### L 501.9910, L100.0100, L500.4050 #### [facility] [address] [place], [address] Chloride [Moles/Vol] 106 mmol/L Normal 98-107 [facility] Comment on above: Order Comment: Order Date: 09/13/24 Order Info: 0786-1 - CMP Order Info: 28504-02 - PSA Performed By: #### L 501.9910, L100.0100, L500.4050 #### [facility] [address] [place], [address] CO2 [Moles/Vol] 28.0 mmol/L Normal 21.0-32.0 [facility] Comment on above: Order Comment: Order Date: 09/13/24 Order Info: 0786-1 - CMP Order Info: 28504-02 - PSA Performed By: #### L 501.9910, L100.0100, L500.4050 #### [facility] [address] [place], [address] Creatinine [Mass/Vol] 0.95 mg/dL Normal 0.70-1.30 [facility] Comment on above: Order Comment: Order Date: 09/13/24 Order Info: 07 - CMP Order Info: 2856-10 - PSA Result Comment: The validity of the calculated GFR GFRAA in patients over 70 years has not been determined. Clinical correlation is essential. Performed By: #### L 501.9910, L100.0100, L500.4050 #### [facility] [address] [place], [address] EST GFR - AA 97 mL/min Normal >60 [facility] Comment on above: Order Comment: Order Date: 09/13/24 Order Info: 0786 - CMP Order Info: 2856-10 - PSA Result Comment: Afri can Taiwanese GFR Calc Performed By: #### L 501.9910, L100.0100, L500.4050 #### [facility] [address] [place], [address] GAP 6 Normal 5-15 [facility] Comment on above: Order Comment: Order Date: 09/13/24 Order Info: 0786- - CMP Order Info: 28504-02 - PSA Performed By: #### L 501.9910, L100.0100, L500.4050 #### [facility] [address] [place], [address] GFR/1.73 sq M.predicted among non-blacks MDRD (S/P/Bld) [Vol rate/Area] 80 mL/min/{1.73_m2} Normal >60 [facility] Comment on above: Order Comment: Order Date: 09/13/24 Order Info: 0786- - CMP Order Info: 2856-10 - PSA Result Comment: Non- GFR Calc Performed By: #### L 501.9910, L100.0100, L500.4050 #### [facility] [address] [place], [address] Globulin (S) [Mass/Vol] 3.3 g/dL Normal 2.2-4.2 [facility] Comment on above: Order Comment: Order Date: 09/13/24 Order Info: 785-10 - CMP Order Info: 2856-10 - PSA Performed By: #### L 501.9910, L100.0100, L500.4050 #### [facility] [address] [place], [address] Glucose [Mass/Vol] 109 mg/dL High 74-106 [facility] Comment on above: Order Comment: Order Date: 09/13/24 Order Info: 785-10 - CMP Order Info: 2856-10 - PSA Result Comment: Fast ing Glucose result from 100 to 125 mg/dL suggests IMPAIRED HOMEOSTASIS per A.D.A. criteria. Performed By: #### L 501.9910, L100.0100, L500.4050 #### [facility] [address] [place], [address] Potassium [Moles/Vol] 4.3 mmol/L Normal 3.5-5.1 [facility] Comment on above: Order Comment: Order Date: 09/13/24 Order Info: 07 - CMP Order Info: 2856-10 - PSA Performed By: #### L 501.9910, L100.0100, L500.4050 #### [facility] [address] [place], [address] Sodium [Moles/Vol] 139 mmol/L Normal 136-145 [facility] Comment on above: Order Comment: Order Date: 09/13/24 Order Info: 07 - CMP Order Info: 2856-10 - PSA Performed By: #### L 501.9910, L100.0100, L500.4050 #### [facility] [address] [place], [address] T PROT 7.1 g/dL Normal 6.4-8.2 [facility] Comment on above: Order Comment: Order Date: 09/13/24 Order Info: 0786-1 - CMP Order Info: 2857-1 - PSA Performed By: #### L 501.9910, L100.0100, L500.4050 #### [facility] [address], [address] Urea nitrogen [Mass/Vol] 24 mg/dL High 7-18 [facility] Comment on above: Order Comment: Order Date: 09/13/24 Order Info: 0786-1 - CMP Order Info: 285-1 - PSA Performed By: #### L 501.9910, L100.0100, L500.4050 #### [facility] [address] [place], [address] PSA,Total - Annual Screenon 09-13-2024 PSA,TOT SCREEN 6.14 ng/mL High 0.00-4.00 [facility] Comment on above: Order Comment: Order Date: 09/13/24 Order Info: 0786-1 - CMP Order Info: 2857-1 - PSA Result Comment: This test was performed using the TPSA assay method for the [employer] chemistry system. Values obtained with different assay methods cannot be used interchangably. When changing PSA assays in the course of monitoring a patient, additional sequential testing should be carried out to confirm baseline values. Performed By: #### L 501.9910, L100.0100, L500.4050 #### [facility] [address] [place], [address] Chest without Contraston Chest without Contrast [facility] [address] [place] [address] Chest without Contrast MR#: [id number] Acct: [id number] Name: JAY PIÑA Rep #: [id number] : 1940 M 83 From: Dilip benson MD PCP: Dr. Lalo Chou MD Status: REG CLI Study: Chest without Contrast Date of Exam: 05/23/24 Exam# [id number] Ordering Dr: TONI KOENIG [id number] STUDY: CT CHEST WITHOUT CONTRAST REASON FOR EXAM: Male, 83 years old. Hemoptysis RADIATION DOSAGE (If Supplied By Facility): CTDIvol = ( 7.15 ) mGy, DLP = ( 289.40 ) mGycm TECHNIQUE: Transaxial imaging was performed without the administration of intravenous contrast material. Multiplanar coronal and sagittal images were reformatted. Individualized dose optimization techniques were used for this CT. COMPARISON: Comparison is made with prior study dated June 14, 2023. FINDINGS: CHEST Hyperinflation. Emphysematous changes more pronounced in the upper lobes. Calcified left pleural plaques. Mild scarring at the left lung base and right lower lobe. There are calcifications of the coronary arteries. Normal mediastinum. Normal hilar regions. Normal unenhanced pulmonary arteries. There is atherosclerotic calcification of the aortic arch with tortuosity and elongation of the aortic arch and descending thoracic aorta. There are multi-level degenerative changes of the thoracic spine. Stable cyst in the upper pole of the left kidney. CT/Chest without Contrast IMPRESSION: Hyperinflation and emphysematous changes with mild scarring as described. No pulmonary nodular density is seen. Electronically Signed: Dilip Chauhan MD at 10:41 EDT , CC: TONI KOENIG; Dr. Lalo Chou MD Attendant Self Service Store: Signed Normal [facility] percentage 2021 Cholesterol [Mass/Vol] 160 mg/dL <200 [facility] Work Phone: Comment on above: <200 mg/dL Desirable 200-240 mg/dL Borderline >240 mg/dL High Risk Triglyceride [Mass/Vol] 65 mg/dL <199 [facility] Work Phone: Comment on above: The drugs N-Acetylcy steine and Metamizole may falsely depress this assay.Serum Triglycerides Reference Interval Normal <150 mg/dL Borderline high 150 - 199 mg/dL High 200 - 499 mg/dL Very High > or = 500 mg/dL Laboratory - Chemistry and C hemistry - challengeon 09-06-2022 Free T4 [Mass/Vol] 0.90 ng/dL 0.76-1.46 [facility] Work Phone: No Panel Informationon 09-06 Estimated GFR (MDRD) Amer 118 mL/min >60 [facility] Work Phone: Comment on above: GFR Calc Estimated GFR (MDRD) Non-Af Amer 98 mL/min >60 [facility] Work Phone: Comment on above: Non- GFR Calc Thyroid Stimulating Hormone (TSH) 2.36 uIU/mL 0.358-3.74 [facility] Work Phone: Serum or plasma cholesterol in HDL measurement (mass/volume)on 09-06-2022 Cholesterol in HDL [Mass/Vol] 42 mg/dL >40 [facility] Work Phone: Comment on above: The drugs N-Acetylcy steine and Metamizole may falsely depress this assay. Reference Range HDL <40 mg/dL Low HDL Cholesterol HDL >or= 60 mg/dL High HDL Cholesterol Serum or plasma cholesterol in VLDL measurement (mass/volume)on 09-06-2022 Cholesterol in VLDL [Mass/Vol] 13 mg/dL 5-40 [facility] Work Phone: Serum or plasma creatinine m easurement (mass/volume)on 09-06-2022 Creatinine [Mass/Vol] 0.80 mg/dL 0.70-1.30 [facility] Work Phone: Comment on above: The validity of the calculated GFR & GFRAA in patients over 70 years has not been determined. Clinical correlation is essential. Serum or plasma low density lipoprotein (LDL) cholesterol measurement (mass/volume)on 09-06-2022 Cholesterol in LDL [Mass/Vol] 105 mg/dL 0-130 [facility] Work Phone: Office Visit: naomi on backon 07-07-2017 Fall risk assessment No Invalid Interpretation Code [facility] [employer] Work Phone: Protein mass conc T Invalid Interpretation Code [facility] [employer] Work Phone: Protein mass conc Done Invalid Interpretation Code [facility] [employer] Work Phone: Tobacco smoking status NHIS Never Invalid Interpretation Code [facility] [employer] Work Phone: Tobacco smoking status NHIS Former smoker Invalid Interpretation Code [facility] [employer] Work Phone: Vital Signs Date Time Vital Sign Value Performing Clinician Garret conway 07-07-2017 09:17-0400 BP Diastolic 83 mm[Hg] Bahman Heath MD [facility] [employer] Work Phone: 07-07-2017 09:17-0400 BP Systolic 151 mm[Hg] Bahman Heath MD [facility] [employer] Work Phone: 07-07-2017 09:17-0400 Pulse (Heart Rate) 61 /min Bahman Heath MD [facility] [employer] Work Phone: 07-07-2017 09:17-0400 Respiratory Rate 18 /min Bahman Heath MD [facility] [employer] Work Phone: Encounters Encounter Date Encounter Type Care Provider Facility Start: 03-11-2025 End: 03-11-[address] Lalo Chou MD Work Phone: [facility] Work Phone: Start: 03-11-2025 End: 03-11-[address] Lalo Chou MD -[facility] Work Phone: Start: 03-11-2025 End: 03-11-2025 ambulatory Lalo Chou Facility:[facility] Start: 09-13-2024 End: 09-13-2024 ambulatory Lalo Chou Facility:[facility] Start: 05-23-2024 End: 05-23-2024 ambulatory [facility] Facility:[facility] Start: 06-14-2023 End: 06-14-2023 ambulatory [facility] Work Phone: Start: 06-14-2023 End: 06-14-2023 Patient encounter procedure [facility]-Cat Scan, [facility] Work Phone: Start: 09-06-2022 End: 09-06-2022 ambulatory [facility] Work Phone: Start: 09-06-2022 End: 09-06-2022 Patient encounter procedure [facility]-Laboratory, [facility] Procedures Date Procedure Procedure Detail Performing Clinician Start: 03-11-2025 Assay of prostate sp ecific antigen total Dr. Lalo Chou MD Work Phone: Comment on above: This test was perfor med using the [employer] tPSA method. Measured values of a patient sample can vary depending on the testing procedure used. PSA values determined on patient samples by different testing procedures cannot be used interchangeably. If there is a change in PSA assays while monitoring therapy, sequential testing should be performed to confirm baseline values. Start: 06-14-2023 CT of chest and abdomen Start: 06-14-2023 CT of soft tissues o f neck with contrast Start: 07-07-2017 End: 07-07-2017 Destruction premalignant lesion 1st Bahman Heath MD Work Phone: Plan of Treatment Date Care Activity Detail Author Start: 07-07-2017 End: 07-07-2017 Appointment Appointment [facility] [employer] Work Phone: Payers Date Payer Category Payer Unknown [id number] 2024 Self-pay [id number] 2024 Unknown [id number] 55 Medicare [employer] [employer] E [id number] Medicare MEDICARE PART A B [id number] Unknown COMMERCIAL OTHER [id number] Unknown [place] AUTH REQUIRED SEE NOTE* * [id number] Unknown [id number] Unknown [id number] Unknown [id number] Social History Date Type Detail Facility Start: 11-20-2019 End: 11-20-2019 Tobacco smoking status MSIS Unknown if ever smoked [facility] Start: 1940 Sex Assigned At Male W [facility] Start: 11-20-2019 Tobacco smoking stat us MSIS Ex-smoker (finding) [facility] Evaluation note Note Date & Type Note Facility Evaluation note No assessment information availa ble [facility] Work Phone: Reason for referral (narrative) Note Date & Type Note Facility Reason for referral (narrative) No reason for referral information available [facility] Work Phone: Family History No Family History Records Found Relationship Condition Age at Onset Recorded Date/T cassy mother Cerebral hemorrhage Unknown Hypertension Unknown father Malignant neoplasm of lung Unknown brother Malignant neoplasm of prostate Unknown Heart disease Unknown Advance Directives No Advanced Directives Records Found Advance Directive Response Recorded Date/ Time Living Will Yes August 06 2:41pm Power of Battery Assembler Yes August 06, 2019 2:41pm Advance Directive Response Recorded Date/ Time Living Will Yes August 06 3:41pm Power of Battery Assembler Yes August 06, 2019 3:41pm Chief Complaint and Reason for Visit Chief Complaint ABNORMAL WEIGHT LOSS Chief Complaint Admit Date EORDER- PSA March 11, 2025 9:24a m Summary Purpose Additional Source Comments Goals (unrecognized section and content) Goals may be documented in a n alternate sectionGoals may be documented in an alternate sectionGoals may be documented in an alternate section Care Teams (unrecognized sec tion and content) Team Status: Active Member Role Status Dates Dr. Lalo Chou MD Family Provider Active Dr. Lalo Chou MD Primary Care Provider Active Team Status: Inactive Member Role Status Dates Dr. Lalo Chou MD Primary Care Provider Active Dr. Cole Downing MD Attending Provider, Referring Prov ider Active Team Status: Inactive Member Role Status Dates Dr. Lalo Chou MD Primary Care Provider Active Start: March 11, 2025 End: March 11, 2025 Dr. Lalo Chou MD Attending Provider Active St art: March 11, 2025 End: March 11, 2025 Dr. Lalo Chou MD Referring Provider Active St art: March 11, 2025 End: March 11, 2025 (unrecognized sect ion and content) No Status Records Found INFORMATION SOURCE (unrecogn ized section and content) DATE CREATED AUTHOR 03/15/2025 [facility] FOR RECORDS PERTAINING TO PATIENTS WHO ARE OR HAVE BEEN ENROLLED IN A CHEMICAL DEPENDENCY/SUBSTANCEABUSE PROGRAM, SOME INFORMATION MAY BE OMITTED. This clinical summary was aggregated from multiple sources. Caution should be exercised in using it in the provision of clinical care. This summary normalizes information from multiple sources, and as a consequence, information in this document may materially change the coding, format and clinical context of patient data. In addition, data may be omitted in some cases. CLINICAL DECISIONS SHOULD BE BASED ON THE PRIMARY CLINICAL RECORDS. [employer] provides no warranty or guarantee of the accuracy or completeness of information in this document.
--- NOTE | 2025-06-17 01:15 | EDS_ITS ---
HPI History of Present Illness Chief Complaint: Complaint Informant: patient and spouse/S.O. Narrative Narrative: Patient is 84-year-old male with previous history of right lower extremity DVT and bladder cancer. Patient had surgery in 2009 regarding this and is not on chemotherapy or radiation nor does he take anticoagulation. He states that today he went from urinating normally to just dribbling. He states over the last few hours he has had increasing abdominal pain and distention. He denies taking any new medications or recent trauma or surgical procedures. He denies any previous history of urinary retention. However as he cannot urinate and is having increasing pain he presents for evaluation [facility] Medical History Bladder cancer Polyarthritis DVT (deep venous thrombosis) History of paresthesia Home Medications ?Medication ?Instructions ?Recorded ?Last Taken ?Type apixaban 5 mg tablet 5 mg PO BID 06/08/19 Unknown History tamsulosin 0.4 mg capsule (Flomax) 0.4 mg PO DAILY 30 days #30 caps 06/17/25 Unknown Rx Allergy/AdvReac Type Severity Reaction Status Date / Time Sulfa (Sulfonamide AdvReac Rash Verified 11/20/19 10:25 Antibiotics) Family History Mother Cerebral hemorrhage Hypertension Father Lung cancer Brother Prostate cancer Heart disease Surgical History History of bilateral inguinal hernia repair Social History Smoking Status: Former smoker ROS [facility] ED Constitutional Constitutional ED: Denies chills or fever(s) Eyes Eyes: Denies change in vision ENT ENT ED: Denies sore throat Cardiovascular Cardiovascular: Denies chest pain Respiratory/Chest Respiratory/Chest: Denies cough or dyspnea Gastrointestinal Gastrointestinal: Reports abdominal pain; Denies diarrhea, nausea or vomiting Genitourinary Genitourinary ED: Reports other Details: Positive difficulty urinating/urinary hesitancy Musculoskeletal Musculoskeletal: Denies back pain Integumentary Denies rash Neurologic Neurologic: Denies headache(s) Hematologic/Lymphatic Hematologic/Lymphatic: Denies easy bleeding or easy bruising EXAM Physical Exam Const Vital Signs: 06/17/25 00:17 06/17/25 01:27 Temperature 98 F 98.0 F Temperature Source Temporal Pulse Rate 75 70 Respiratory Rate 18 18 Blood Pressure 135/108 H 137/76 H Blood Pressure Mean 117 96 Pulse Ox 98 98 Oxygen Delivery Method Room Air Positive well nourished and well developed General Appearance ED: well developed; Negative for pallor HEENT HEENT Narrative: Normocephalic atraumatic Eyes PERRL and EOMs intact bilaterally General Eye ED: Negative for scleral icterus Neck supple Resp normal respiratory effort and clear to auscultation bilaterally Cardio regular rate and regular rhythm GI non-distended GI Narrative: In the midline of the lower abdomen there is organomegaly with distention of the bladder up to just below the umbilicus consistent with acute urinary retention. There is pain with palpation at this site. Otherwise the abdomen is soft nontender and nondistended with normal active bowel sounds. Auscultation: normoactive bowel sounds Palpation: soft Narrative: No blood or discharge from the urethral meatus No testicular swelling or masses noted Back/Spine no CVA tenderness Extremity normal to inspection Neuro oriented x3 and CN's II-XII intact bilaterally Sensorium / Orientation: alert Psych mental status grossly normal Skin no rashes or lesions noted General Skin Exam: Negative for jaundice or pallor MDM MDM MDM Narrative Medical decision making narrative: Patient reported increasing abdominal pain and the inability to void normally. He stated that the symptoms have been present only for a few hours and therefore my concern for acute kidney injury is low. Also symptoms only and present for a few hours and he is afebrile concern for UTI is low and I do not feel the need for blood work or urine sample. The patient's history and exam is consistent with acute urinary retention and therefore Kelly catheter was placed. 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 The catheter will be kept in place to prevent reoccurrence of the acute urinary retention but as the patient's bladder has not been drained and vitals are stable and his symptoms resolved he is otherwise safe for discharge. History & Record Review Discussion w/independent historian: Patient and Significant other Discharge Plan Triage Chief Complaint: Complaint ED Provider: Marc Siddiqui Dx/Rx/DC Orders Clinical Impression: Acute urinary retention, History of bladder cancer, History of DVT of lower extremity Instructions: ED Kelly Catheter, Care, ED Urinary Retention, Male Prescriptions: New tamsulosin [Flomax] 0.4 mg capsule 0.4 mg PO DAILY 30 Days Qty: 30 0RF No Action apixaban 5 MG tablet 5 mg PO BID Primary Care Provider: Lalo Chou Referrals: Lalo Chou MD [Primary Care Provider] - Guzman Patton MD [Med Staff - Active Staff] - (Urinary retention) Activity Restrictions/Additional Instructions: Please keep your Kelly catheter in place to prevent reoccurrence of your urinary retention. It is most likely due to an enlarged/irritated prostate and therefore take the Flomax/tamsulosin daily to help prevent this. Follow-up with urology for repeat evaluation and return to the ER should you have any further concerns Print Language: Turkmen Disposition Disposition: Home, Self Care Discharge Date/Time: 06/17/25 01:28
[2025-06-17 01:27] VITALS: BP 137/76; PULSE 70; RESP 18; TEMP 36.7; O2SAT 98
== END 2025-06-17 01:28 | disposition home or self-care (01) ==
PROVIDERS: Emergency Provider Emergency Medicine; PCP Family Medicine; Visit Provider Emergency Medicine
DX: R33.9 Retention of urine, unspecified (principal); Z86.718 Personal history of other venous thrombosis and embolism; Z87.891 Personal history of nicotine dependence; Z85.51 Personal history of malignant neoplasm of bladder
CPT/HCPCS: 51702; 99283

== ENCOUNTER 2025-06-18 18:34 | Emergency (ER) | payer MEDICARE, SELFPAY ==
[2025-06-18 18:37] VITALS: BP 141/70; PULSE 81; RESP 18; TEMP 37; O2SAT 95; BMI 16.4
[2025-06-18 18:41] VITALS: BP 141/70; PULSE 81; RESP 18; TEMP 37; O2SAT 95
--- NOTE | 2025-06-18 18:41 | ED.RN ---
Pt's showed this RN a picture of pt at home with camacho bag full of blood. Bag was noted to be on the ground in the picture and pt's placed camacho bag on the ground in triage. Pt and provided education on keeping bag off the ground to improve prevention from infection. Pt's was argumentative and stated nothing has been put IN the catheter so that's not possible. Continued education provided. Pt confused, not receptive to education.
--- NOTE | 2025-06-18 18:55 | EX.ED.GUMALE ---
HPI History of Present Illness Chief Complaint: Complaint Narrative Narrative: Patient is a 84-year-old male presenting to the emergency department for hematuria and confusion. Patient has a past medical history of right lower extremity DVT and bladder cancer. Patient had surgery in 2009 for his bladder cancer and is not on any chemotherapy or radiation. He is not on any oral anticoagulation. He was here 3 days ago for urinary retention and had a camacho placed. states since then he has had lots of hematuria and increased confusion that started today. Denies fever, chills, nausea, vomiting, abdominal pain, lightheadedness. [facility] Medical History Bladder cancer Polyarthritis DVT (deep venous thrombosis) History of paresthesia Home Medications ?Medication ?Instructions ?Recorded ?Last Taken ?Type cephalexin 500 mg capsule 500 mg PO Q6 #40 CAPSULES 06/18/25 Unknown Rx Allergy/AdvReac Type Severity Reaction Status Date / Time Sulfa (Sulfonamide AdvReac Rash Verified 06/18/25 18:37 Antibiotics) Family History Mother Cerebral hemorrhage Hypertension Father Lung cancer Brother Prostate cancer Heart disease Surgical History History of bilateral inguinal hernia repair Social History Smoking Status: Former smoker ROS ROS ED ROS Narrative See HPI EXAM Physical Exam Narrative Exam Narrative: Vital signs: Reviewed General: Alert and orientedx3. No acute distress HEENT: Head is normocephalic and atraumatic, sinuses nontender, pupils equal round and reactive. Nares are patent. Oropharynx and throat exams normal. Neck: Supple without lymphadenopathy nontender Cardiovascular: Regular rate and rhythm, no murmurs. No rubs or gallops. Normal S1 and S2 Respiratory: Clear to auscultation bilaterally. No wheezes, rales, rhonchi Abdominal: Soft and nontender. Normal bowel sounds. No guarding or rebound. Nonsurgical abdomen : Camacho catheter in place draining light pinkish red urine. No clots. Extremities: No tenderness. No bruising. Normal range of motion. Normal sensation. Skin: No rash or redness. Neurological: Cranial nerves II through XII are grossly intact. Normal strength and sensation. Normal cerebellar function The rest of the physical exam is unremarkable Const Vital Signs: 06/18/25 18:37 06/18/25 18:41 06/18/25 19:41 Temperature 98.6 F 98.6 F 98.6 F Temperature Source Oral Oral Oral Pulse Rate 81 81 62 Respiratory Rate 18 18 16 Blood Pressure 141/70 H 141/70 H 137/74 H Blood Pressure Mean 93 93 95 Pulse Ox 95 95 100 Oxygen Delivery Method Room Air Room Air Room Air 06/18/25 20:18 Temperature 98.6 F Temperature Source Pulse Rate 62 Respiratory Rate 16 Blood Pressure 157/75 H Blood Pressure Mean 102 Pulse Ox 100 Oxygen Delivery Method MDM MDM MDM Narrative Medical decision making narrative: Patient is a 84-year-old male presenting to the emergency department for hematuria and intermittent confusion that started today. Patient was seen and examined. Vitals are stable. Patient resting in bed comfortably in no acute distress. Patient had urinary retention approximately 3 days ago and had a Camacho catheter placed. He is at high risk for urinary tract infection given this. He is now having some intermittent confusion today per . Concern at this time would be for a urinary tract infection. He has no abdominal pain on exam. Has no signs of systemic infection including fever or chills. Will check CBC for both infection and to monitor hemoglobin given continued hematuria. Will check BMP for kidney function and urinalysis. CBC with a mild leukocytosis of 13.9 and a normal hemoglobin. BMP with no significant abnormalities. Normal kidney function. Urinalysis with WBCs, leukocyte esterase and occult blood as well as RBCs. Urine culture sent. Given the patient's mild leukocytosis, high risk for urinary tract infection given his Camacho catheter and his new intermittent confusion will treat for UTI. Given first dose of keflex here. No signs of sepsis. Will prescribe for 10 days for home. Instructed to follow up with urologist as soon as possible and return to the ED with any new or worsening symptoms including fever, chills, abdominal pain, nausea, vomiting, worsening confusion or hematuria. Patient and feel comfortable with the plan. did state at bedside that she wanted the Camacho catheter removed however I recommended that this not be done given the patient just had it placed a few days ago for urinary retention and would be worried that he would develop retention again once it was removed. She understands. Discharged home in stable condition. Patient discharged from the Emergency Department. I do not feel that the patient's evaluation reveals any acute reason for admission at this time. I instructed them to either follow-up with their primary care physician or promptly return to the Emergency Department for reevaluation should symptoms worsen or new symptoms develop. I explained what symptoms would indicate the need to return to the emergency department. Shared decision making was used. The patient voiced understanding of the treatment plan and is agreeable with it. Clinical impression: UTI in male Hematuria History & Record Review Discussion w/independent historian: Patient and Family Additional record(s) reviewed:: Prior ED visit Lab Data Attestation: I reviewed the patient's lab results. Labs: Laboratory Results - last 24 hr 06/18/25 06/18/25 19:13 19:20 WBC 13.9 H RBC 4.46 L Hgb 13.6 Hct 39.9 L MCV 89.5 MCH 30.5 MCHC 34.1 RDW Std Deviation 43.7 RDW Coeff of Huber 13.2 Plt Count 264 MPV 10.5 Immature Gran % (Auto) 0.300 Neut % (Auto) 74.8 H Lymph % (Auto) 14.5 L Sanborn % (Auto) 9.8 Eos % (Auto) 0.4 Baso % (Auto) 0.2 Absolute Neuts (auto) 10.4 H Absolute Lymphs (auto) 2.02 Nucleated RBC % 0 Sodium 139 Potassium 4.0 Chloride 104 Carbon Dioxide 23.4 Anion Gap 12 BUN 15 Creatinine 0.84 Estim Creat Clear Calc 47.63 L Est GFR (MDRD) Non-Af 85 BUN/Creatinine Ratio 17.4 Glucose 121 H Calcium 9.6 Urine Color Red Urine Clarity Cloudy Urine pH 7.0 Ur Specific [place] 1.010 Urine Protein 100 H Urine Glucose (UA) Normal Urine Ketones Negative Urine Occult Blood 250 H Urine Nitrite Negative Urine Bilirubin Negative Urine Urobilinogen Normal Ur Leukocyte Esterase 500 H Urine RBC 10-25 SEEN Urine WBC >100 SEEN Ur Squamous Epith Cells 0 SEEN Urine Bacteria 0 SEEN Urine Mucus 0 SEEN Discharge Plan Triage Chief Complaint: Complaint Other Complaint: Confusion ED Provider: Mckenzie Harper Dx/Rx/DC Orders Clinical Impression: Acute UTI (urinary tract infection) Instructions: ED Urinary Tract Infections in Men Prescriptions: New cephalexin 500 mg capsule 500 mg PO Q6 Qty: 40 0RF Primary Care Provider: Lalo Chou Referrals: Your urologist [Other] - 3-5 Days Lalo Chou MD [Primary Care Provider] - Activity Restrictions/Additional Instructions: Take the antibiotic 4 times a day, every 6 hours for 10 days. Please follow-up with your urologist as soon as possible. Return to the ED with any new or worsening symptoms including fevers, chills, nausea, vomiting, abdominal pain. Your evaluation in the Emergency Department did not reveal any acute reason for admission. However, I want to emphasize that you may be early in the course of a disease process or illness even if it is not present. For this reason you should follow-up within 24 hours for reevaluation with either your primary care physician or if necessary back here in the Emergency Department. You should return to the Emergency Department immediately if your symptoms worsen or new symptoms develop. Print Language: Slovenian Disposition Disposition: Home, Self Care Discharge Date/Time: 06/18/25 20:34
[2025-06-18 19:25] LABS: Hematocrit 39.9 % (40-54); Hemoglobin 13.6 g/dL (13.0-16.5); Immature Granulocytes Count 0.040 X10^3/uL (0.0-0.0); Mean Corp Hgb Conc 34.1 g/dL (32-36); Mean Corpuscular Volume 89.5 fL (80-94); Mean Platelet Vol. 10.5 fl (6.2-12.0); NRBC Flagged by Analyzer 0 % (0-5); Platelet Count 264 K/mm3 (150-450); RBC Distribution Width CV 13.2 % (11.6-14.6); RBC Distribution Width SD 43.7 fl (35.1-43.9); Red Blood Count 4.46 M/mm3 (4.6-6.2); White Blood Count 13.9 K/mm3 (4.4-11.0)
[2025-06-18 19:28] LABS: Mucous, Urine 0 SEEN /hpf (<or=2+); Squamous Epithelial Cells - UA 0 SEEN /hpf (0-5)
[2025-06-18 19:30] LABS: Color, Urine Red (Yellow); Glucose, Dipstick Normal (Normal); Ketone-Dipstick Negative (Negative); Leukocyte Esterase-Dipstick 500 /ul (Negative); Nitrite-Dipstick Negative (Negative); Occult Blood-Urine 250 /ul (Negative); Protein-Dipstick 100 mg/dl (Negative); Specific Gravity, Urine 1.010 (1.002-1.030); Urine Bilirubin Dipstick Negative (Negative)
[2025-06-18 19:41] VITALS: BP 137/74; PULSE 62; RESP 16; TEMP 37; O2SAT 100
[2025-06-18 19:48] LABS: Red Blood Cells-Urine 10-25 SEEN /hpf (0-5)
[2025-06-18 20:18] VITALS: BP 157/75; PULSE 62; RESP 16; TEMP 37; O2SAT 100
[2025-06-18 20:18] LABS: Anion Gap 12 (5-15); BUN 15 mg/dL (4-19); BUN/Creat Ratio 17.4 RATIO (10-20); Calcium,Total 9.6 mg/dL (7.6-11.0); Carbon Dioxide 23.4 mmol/L (21.0-32.0); Chloride 104 mmol/L (98-108); Estimated Creatinine Clearance 47.63 ml/min (50-250); Glucose 121 mg/dL (70-99); Potassium 4.0 mmol/L (3.3-5.1)
== END 2025-06-18 20:34 | disposition home or self-care (01) ==
PROVIDERS: Emergency Provider Student in an Organized Health Care Education/Training Program; PCP Family Medicine; Visit Provider Student in an Organized Health Care Education/Training Program
DX: N39.0 Urinary tract infection, site not specified (principal); R31.9 Hematuria, unspecified; Z87.891 Personal history of nicotine dependence; R41.0 Disorientation, unspecified; Z85.51 Personal history of malignant neoplasm of bladder
CPT/HCPCS: 80048; 81001; 85025; 87086; 99284; A4216

== ENCOUNTER 2025-07-27 08:22 | Emergency (ER) | payer OTHER, SELFPAY ==
[2025-07-27 08:23] VITALS: BP 135/75; PULSE 98; RESP 16; TEMP 37.1; O2SAT 98
[2025-07-27 08:24] VITALS: BMI 16.9
--- NOTE | 2025-07-27 09:01 | RAD_ITS ---
PROCEDURE: CHEST 1 VIEW (PORTABLE) 07/27/2025 REASON FOR EXAM: CORONARY ARTERY DISEASE TECHNIQUE: Frontal view of the chest. COMPARISON: None FINDINGS: Cardiomediastinal silhouette is normal. 3 calcified pulmonary nodules in the left lung. No consolidation in either lung. No pleural effusion or pneumothorax. RAD/Chest 1 View (Portable) IMPRESSION: 1. Left lung calcified nodules could reflect granulomatous disease. Reading Location: [id number]
--- NOTE | 2025-07-27 09:01 | EKG12_ITS ---
Test Reason : WEAKNESS Blood Pressure : */* mmHG Vent. Rate : 69 BPM Atrial Rate : 69 BPM P-R Int : 152 ms QRS Dur : 74 ms QT Int : 372 ms P-R-T Axes : 54 -29 48 degrees QTcB Int : 398 ms Normal sinus rhythm Normal ECG Confirmed by OREN SYLVESTER ([id number]), editor in chief HEATHER JIMENEZ ([id number]) on 07/29/2025 7:09:10 AM Referred By: Confirmed By: OREN SYLVESTER
--- NOTE | 2025-07-27 09:02 | EX.ED.DYSGE1 ---
HPI History of Present Illness Chief Complaint: Weakness Narrative Narrative: 85-year-old male who denies significant past medical history presents with his because of generalized weakness that has had for the last few weeks to months. His relates history that ever since he had COVID years ago, foods do not taste right to him. He stated that he was tired of food not tasting right and has had decreased p.o. intake. No recent fevers or chills, no nausea or vomiting, no exacerbating or alleviating factors. They state that they present to the emergency department at the suggestion of one of his primary care providers at the [facility]/the nurse as it takes a long time to get into their primary care provider, Dr. Chou. He has had a generalized weakness. also relates history that he started Flomax but after 22 doses, she stopped giving it to him because it was making him act strange and confused. She relates history that he had problems with urinary retention and had to have a Kelly catheter as well, but those symptoms resolved. They are here for workup for generalized weakness and decreased appetite. [facility] Medical History Bladder cancer Polyarthritis DVT (deep venous thrombosis) History of paresthesia Home Medications ?Medication ?Instructions ?Recorded ?Last Taken ?Type MENTAL ALERTNESS 1 cap PO DAILY SUPPLEMENT 07/27/25 07/26/25 History TOTAL EYE HEALTH 1 cap PO DAILY SUPPLEMENT 07/27/25 07/26/25 History ascorbic acid (vitamin C) 500 mg 1 g PO DAILY SUPPLEMENT 07/27/25 07/26/25 History tablet (C-500) cephalexin 500 mg capsule 500 mg PO Q6 7 days #28 CAPSULES 07/27/25 Unknown Rx tamsulosin 0.4 mg capsule 0.4 mg PO DAILY 07/27/25 Unknown History vitamin D3 125 mcg (5,000 1 cap PO DAILY SUPPLEMENT 07/27/25 07/26/25 History unit)-vitamin K2 100 mcg capsule Allergy/AdvReac Type Severity Reaction Status Date / Time Sulfa (Sulfonamide AdvReac Rash Verified 07/27/25 08:23 Antibiotics) Family History Mother Cerebral hemorrhage Hypertension Father Lung cancer Brother Prostate cancer Heart disease Surgical History History of bilateral inguinal hernia repair Social History Smoking Status: Former smoker ROS ROS ED ROS Narrative Review of systems positive for generalized weakness and decreased appetite. No fevers or chills, no nausea or vomiting, no exacerbating or alleviating factors. EXAM Physical Exam Narrative Exam Narrative: Afebrile. Vital signs noted. Nontoxic appearing. Cardiovascular examination feels regular rate and rhythm. Lungs are clear to auscultation bilaterally. Abdomen is soft and nontender without guarding or rebound. Positive bowel sounds. Awake, alert, oriented, interactive, appropriate. No pallor of skin, no central cyanosis, moist mucous membranes. No subconjunctival pallor. Const Vital Signs: 07/27/25 08:23 07/27/25 09:11 07/27/25 10:22 Temperature 98.7 F 98.4 F Temperature Source Oral Oral Pulse Rate 98 92 Respiratory Rate 16 22 H Respiratory Pattern Normal Blood Pressure 135/75 H 102/68 Blood Pressure Mean 95 79 Pulse Ox 98 94 Oxygen Delivery Method Room Air Room Air MDM MDM MDM Narrative Medical decision making narrative: Differential diagnosis includes but not limited to pneumonia versus UTI versus dehydration versus other electrolyte imbalance. I reviewed the patient's laboratory work and he has an elevated white count of 17.6, hemoglobin 13.8, hematocrit 40.5, platelet count 322. BUN elevated at 42 with creatinine 1.36 which is a mild acute kidney injury when compared to prior labs with a creatinine of 0.8. Glucose 128 with a normal anion gap of 13. Given his leukocytosis of 17.6, I added a lactic acid but it is less than 1.0. I do not suspect sepsis. Additionally, he is not meeting other SIRS criteria. His urinalysis shows greater than 100 WBCs. There is 0 bacteria but he is positive for nitrites. This will be sent for culture. I do feel that he probably has a cystitis. Chest x-ray interpreted by myself independently shows no evidence of a consolidation. There are granulomas. I reviewed the radiology report which confirms my independent interpretation. At this point in time, I discussed with him outpatient follow-up versus admission/observation. He does not want placement into rehab even if temporarily. He feels well enough to be discharged. He was given his first dose of cephalexin here in the emergency department and prescription written to take 4 times a day for the next week. Additionally, I sent his urine for culture as this seems to be more of a complicated UTI. He could be more of just pyuria. Regardless, I feel he can be discharged to follow-up with his primary care provider. Return instructions to the emergency department were reviewed. Disposition is discharged home in stable condition. History & Record Review Discussion w/independent historian: Patient and Family () Additional record(s) reviewed:: Prior ED visit Lab Data Attestation: I reviewed the patient's lab results. Labs: Laboratory Results - last 24 hr 07/27/25 07/27/25 07/27/25 09:17 10:40 11:20 WBC 17.6 H RBC 4.49 L Hgb 13.8 Hct 40.5 MCV 90.2 MCH 30.7 MCHC 34.1 RDW Std Deviation 42.7 RDW Coeff of Huber 12.9 Plt Count 322 MPV 9.3 Immature Gran % (Auto) 1.100 H Neut % (Auto) 78.5 H Lymph % (Auto) 10.0 L Mckean % (Auto) 9.8 Eos % (Auto) 0.2 Baso % (Auto) 0.4 Absolute Neuts (auto) 13.8 H Absolute Lymphs (auto) 1.75 Nucleated RBC % 0 Sodium 136 Potassium 4.9 Chloride 100 Carbon Dioxide 23.6 Anion Gap 13 BUN 42 H Creatinine 1.36 H Estim Creat Clear Calc 29.80 L Est GFR (MDRD) Non-Af 50 L BUN/Creatinine Ratio 31.0 H Glucose 128 H Lactic Acid < 1.0 Calcium 9.4 Urine Color Yellow Urine Clarity Cloudy Urine pH 6.5 Ur Specific [place] 1.010 Urine Protein 100 H Urine Glucose (UA) Normal Urine Ketones Negative Urine Occult Blood 250 H Urine Nitrite Positive H Urine Bilirubin Negative Urine Urobilinogen Normal Ur Leukocyte Esterase 500 H Urine RBC 0 SEEN Urine WBC >100 SEEN Ur Squamous Epith Cells 0 SEEN Urine Bacteria 0 SEEN Urine Mucus 0 SEEN Radiography Chest X-Ray - ED: 1 View, Read by ED Physician and Read by Radiologist Diagnostic Testing: Clinical Impression(s) from Imaging Studies Chest X-Ray 07/27/25 09:01 IMPRESSION: 1. Left lung calcified nodules could reflect granulomatous disease. Reading Location: [facility] Discharge Plan Triage Chief Complaint: Weakness ED Provider: Nikolay Mcdowell Dx/Rx/DC Orders Clinical Impression: Generalized weakness, UTI (urinary tract infection), Confusion, Acute kidney injury Instructions: ED Confusion, ED Bladder Infection, Male (Adult), ED Weakness Uncertain Cause Prescriptions: New cephalexin 500 mg capsule 500 mg PO Q6 7 Days Qty: 28 0RF No Action tamsulosin 0.4 mg capsule 0.4 mg PO DAILY TOTAL EYE HEALTH capsule 1 cap PO DAILY ascorbic acid (vitamin C) [C-500] 500 mg tablet 1 g PO DAILY vitamin D3-vitamin K2 125 mcg (5,000 unit)-100 mcg capsule 1 cap PO DAILY MENTAL ALERTNESS capsule 1 cap PO DAILY Primary Care Provider: Lalo Chou Referrals: Lalo Chou MD [Primary Care Provider, Family Practice] - 5-7 Days Activity Restrictions/Additional Instructions: Follow-up with your primary care provider in 5 to 7 days. Return with fever, new or worsening symptoms. Take all of the antibiotic as directed. Your urine was sent for culture. They will contact you if there is a need for change in antibiotics. Print Language: Danish Disposition Disposition: Home, Self Care
[2025-07-27] MEDS: 0.9% Normal Saline (1000mL) 1,000 ML 1000 ML IV (09:17)
[2025-07-27 09:25] LABS: Hematocrit 40.5 % (40-54); Hemoglobin 13.8 g/dL (13.0-16.5); Immature Granulocytes Count 0.200 X10^3/uL (0.0-0.0); Mean Corp Hgb Conc 34.1 g/dL (32-36); Mean Corpuscular Volume 90.2 fL (80-94); Mean Platelet Vol. 9.3 fl (6.2-12.0); NRBC Flagged by Analyzer 0 % (0-5); POSITIVE DIFFERENTIAL YES; Platelet Count 322 K/mm3 (150-450); RBC Distribution Width CV 12.9 % (11.6-14.6); RBC Distribution Width SD 42.7 fl (35.1-43.9); Red Blood Count 4.49 M/mm3 (4.6-6.2); White Blood Count 17.6 K/mm3 (4.4-11.0)
--- OUTSIDE RECORDS SUMMARY | 2025-07-27 09:25 | XMS RPT_ITS | CCD ---
Author Organization [facility] Care Team Providers Care Assistant Cook Name Role Phone Bahman Heath MD Unavailable José Antonio MAYEN, Dr. May Primary Care Provider [phone] José Antonio MAYEN, Dr. May Attending Provider [phone] Dr. Lalo Chou MD Referring Provider Dr. Marc Siddiqui DO Emergency Provider Meredith MAYEN, Dr. Rincon Emergency Provider Unavailab Lalo Farris Attending Unavailable José Antonio Lalo Primary Care Unavailable Lalo Chou Referring Unavailable Mckenzie Harper Attending Unavailable Lalo Chou Primary Care Unavailable José Antonio Lalo Primary Care Unavailable Marc Siddiqui Attending Unavailable Lalo Chou Attending Unavailable José Antonio, Lalo Primary Care Unavailable Lalo Chou Referring Unavailable Allergies Allergy Classification Reported Allergen(s) Allergy Type Date of Onset Reaction(s) Facility (1 source) Sulfamethoxazole / Trimethoprim Drug Allergy 07-07-20 17 had to go to ER [facility] Work Phone: (5 sources) Sulfonamides (Antibiotic) Propensity to adverse reactions 11-20-19 20 Rash [facility] (1 source) Sulfonamides (Antibiotic) Drug allergy (disorder) 06-18-20 25 [facility] Repository Medications Current Medications Medication Drug Class(es) Dates Sig (Normalized) Sig (Original) cephalexin 500 mg oral capsule (1 source) Cephalosporin Antibacterial Start: 06-18-2025 take 1 capsule by mouth every six hours Cephalexin 500 mg capsule Active 500 mg PO EVERY 6 HOURS 40 0 June 18, 2025 12:00am Completed/Discontinued Medications Medication Drug Class(es) Dates Sig (Normalized) Sig (Original) apixaban 5 mg oral tablet (10 sources) Factor Xa Inhibitor Start: 06-08-2019 End: 06-18-2025 take 1 tablet by mouth twice daily Apixaban 5 MG tablet Discontinued 5 mg PO TWICE A DAY June 08, 2019 12:00am June 18, 2025 6:47pm Start: 04-16-2019 End: 05-16-2019 take 2 tablets by mouth twice daily, then take 1 tablet by mouth twice daily Apixaban 5 MG tablet Discontinued 5 mg PO TWICE A DAY 74 30 0 April 16, 2019 12:00am May 15, 2019 12:00am May 16, 2019 12:07am Take 2 tablets by mouth twice a day for 7 days, then take 1 tablet by mouth twice a day after that tamsulosin hydrochloride 0.4 mg oral capsule (2 sources) alpha-Adrenergic Sergio Start: 06-17-2025 End: 06-18-2025 take 1 capsule by mouth once daily Tamsulosin (Flomax) 0.4 mg capsule Discontinued 0.4 mg PO DAILY 30 30 0 June 17, 2025 12:00am June 18, 2025 6:47pm Problems Active Problems Problem Classification Problem Date Documented Da te Episodic/Chronic Cancer of bladder (1 source) Malignant neoplasm of bladder, unspecified; Translations: [Malignant neoplasm of bladder, unspecified] Onset: 10-16-2024 Chronic Cancer of bladder (5 sources) H/O: malignant neoplasm; Translations: [Personal history of malignant neoplasm of bladder] 08-06-2019 Episodic Genitourinary symptoms and ill-defined conditions (5 sources) Retention of urine; Translations: [Acute retention of urine ] Onset: 06-21-2025 Episodic Phlebitis; thrombophlebitis and thromboembolism (15 sources) H/O: Deep vein thrombosis; Translations: [Personal history of other venous thrombosis and embolism] 08-06-2019 Episodic Superficial injury; contusion (5 sources) Contusion of shoulder region; Translations: [Contusion of left shoulder, initial encounter] 08-07-2019 Episodic Urinary tract infections (2 sources) Acute urinary tract infection; Translations: [Urinary tract infection, site not specified] Onset: 2025 06-18-2025 Episodic Past or Other Problems Problem Classification Problem Date Documented Da te Episodic/Chronic Other screening for suspected conditions (not mental disorders or infectious disease) (1 source) Elevated prostate specific antigen [PSA]; Translations: [Elevated prostate specific antigen [PSA]] Onset: 03-13-2025 Episodic Other skin disorders (1 source) Skin lesion; Translations: [Disorder of the skin and subcutaneous tissue, unspecified] Onset: 07-07-2017 07-07-2017 Episodic Results Test Name Value Interpretation Reference Range Facility Urine Cultureon 06-19-2025 URC Culture exhibits no growth. Normal [facility] Comment on above: Performed By: #### M 100.2200 ####[facility] [id number], [address] Absolute lymphocyte countOrd ered By: Mckenzie Harper on 06-18-2025 Lymphocytes Auto (Unsp spec) [#/Vol] 2.02 10*3/uL 0.83-4.51 [facility] Absolute neutrophil countOrd ered By: Mckenzie Harper on 06-18-2025 Neutrophils (Bld) [#/Vol] 10.4 10*3/uL High 2.0-7.7 [facility] Anion gap in Serum or Plasma Ordered By: Mckenzie Harper on 06-18-2025 Anion gap [Moles/Vol] 12 mmol/L 5-15 [facility] Automated lymphocyte count a s percentage of total leukocytesOrdered By: Mckenzie Harper on 06-18-2025 Lymphocytes/100 WBC Auto (Unsp spec) 14.5 % Low 19-41 [facility] BUN/creatinine ratioOrdered By: Mckenzie Harper on 06-18-2025 Urea nitrogen/Creatinine [Mass ratio] 17.4 mg/mg 10- [facility] Basic Metabolic Profile (BMP )on 06-18-2025 BUN/CRE 17.4 RATIO Normal - [facility] Comment on above: Performed By: #### L 100.0100, L500.2500 #### [facility] [address] [place], [address] Calcium [Mass/Vol] 9.6 mg/dL Normal 7.6-11.0 [facility] Comment on above: Performed By: #### L 100.0100, L500.2500 #### [facility] [address] [place], [address] Chloride [Moles/Vol] 104 mmol/L Normal 98-108 [facility] Comment on above: Performed By: #### L 100.0100, L500.2500 #### [facility] [address] [place], [address] CO2 [Moles/Vol] 23.4 mmol/L Normal 21.0-32.0 [facility] Comment on above: Performed By: #### L 100.0100, L500.2500 #### [facility] [address] [place], [address] Creatinine [Mass/Vol] 0.84 mg/dL Normal 0.70-1.20 [facility] Comment on above: Performed By: #### L 100.0100, L500.2500 #### [facility] [address] [place], [address] ECRCL 47.63 ml/min Low 50-250 [facility] Comment on above: Performed By: #### L 100.0100, L500.2500 #### [facility] [address] [place], [address] GAP 12 Normal 5-15 [facility] Comment on above: Performed By: #### L 100.0100, L500.2500 #### [facility] [address] [place], [address] GFR/1.73 sq M.predicted among non-blacks MDRD (S/P/Bld) [Vol rate/Area] 85 mL/min/{1.73_m2} Normal >60 [facility] Comment on above: Result Comment: mL/m in/1.73m2 CKD-EPI Creatinine Equation (2020) Performed By: #### L 100.0100, L500.2500 #### [facility] [address] [place], [address] Glucose [Mass/Vol] 121 mg/dL High 70-99 [facility] Comment on above: Performed By: #### L 100.0100, L500.2500 #### [facility] [address] [place], [address] Potassium [Moles/Vol] 4.0 mmol/L Normal 3.3-5.1 [facility] Comment on above: Performed By: #### L 100.0100, L500.2500 #### [facility] [address] [place], [address] Sodium [Moles/Vol] 139 mmol/L Normal 133-145 [facility] Comment on above: Performed By: #### L 100.0100, L500.2500 #### [facility] [address] [place], [address] Urea nitrogen [Mass/Vol] 15 mg/dL Normal 4-19 [facility] Comment on above: Performed By: #### L 100.0100, L500.2500 #### [facility] [address] [place], [address] Basophil percentageOrdered B y: Mckenzie Harper on 06-18-2025 Basophils/100 WBC (Bld) 0.2 % 0-1 [facility] Bilirubin Test strip Ql (U)O rdered By: Mckenzie Harper on 06-18-2025 Bilirubin Ql (U) Negative Negative [facility] CBC W/Diff, Automatedon 06-03 Absolute Lymph 2.02 X10 3/uL Normal 0.83-4.51 [facility] Comment on above: Performed By: #### L 100.0100, L500.2500 #### [facility] [address] [place], [address] Absolute Neut 10.4 X10 3/uL High 2.0-7.7 [facility] Comment on above: Performed By: #### L 100.0100, L500.2500 #### [facility] [address] [place], [address] Basophils/100 WBC (Bld) 0.2 % Normal 0-1 [facility] Comment on above: Performed By: #### L 100.0100, L500.2500 #### [facility] [address] [place], [address] Eosinophils/100 WBC (Bld) 0.4 % Normal 0-5 [facility] Comment on above: Performed By: #### L 100.0100, L500.2500 #### [facility] [address] [place], [address] Erythrocyte distribution width (RBC) [Ratio] 13.2 % Normal 11.6-14.6 [facility] Comment on above: Performed By: #### L 100.0100, L500.2500 #### [facility] [address] [place], [address] Hematocrit (Bld) [Volume fraction] 39.9 % Low 40-54 [facility] Comment on above: Performed By: #### L 100.0100, L500.2500 #### [facility] [address] [place], [address] Hemoglobin (Bld) [Mass/Vol] 13.6 g/dL Normal 13.0-16.5 [facility] Comment on above: Performed By: #### L 100.0100, L500.2500 #### [facility] [address] [place], [address] IG% 0.300 Normal 0.0-0.9 [facility] Comment on above: Result Comment: IG% - Immature Granulocytes (promyelocytes, myelocytes and metamyelocytes) > 1% indicates that a LEFT SHIFT is Present. Performed By: #### L 100.0100, L500.2500 #### [facility] [address] [place], [address] Lymphocytes/100 WBC (Bld) 14.5 % Low 19-41 [facility] Comment on above: Performed By: #### L 100.0100, L500.2500 #### [facility] [address] [place], [address] MCH (RBC) [Entitic mass] 30.5 pg Normal 27.0-32.0 [facility] Comment on above: Performed By: #### L 100.0100, L500.2500 #### [facility] [address] [place], [address] MCHC (RBC) [Mass/Vol] 34.1 g/dL Normal 32-36 [facility] Comment on above: Performed By: #### L 100.0100, L500.2500 #### [facility] [address] [place], [address] MCV (RBC) [Entitic vol] 89.5 fL Normal 80-94 [facility] Comment on above: Performed By: #### L 100.0100, L500.2500 #### [facility] [address] [place], [address] Monocytes/100 WBC (Bld) 9.8 % Normal 0-10 [facility] Comment on above: Performed By: #### L 100.0100, L500.2500 #### [facility] [address] [place], [address] Neutrophils/100 WBC (Bld) 74.8 % High 47-70 [facility] Comment on above: Performed By: #### L 100.0100, L500.2500 #### [facility] [address] [place], [address] Nucleated RBC (Bld) [#/Vol] 0 10*3/uL Normal 0-5 [facility] Comment on above: Performed By: #### L 100.0100, L500.2500 #### [facility] [address] [place], [address] Platelet mean volume (Bld) [Entitic vol] 10.5 fL Normal 6.2-12.0 [facility] Comment on above: Performed By: #### L 100.0100, L500.2500 #### [facility] [address] [place], [address] Platelets (Bld) [#/Vol] 264 10*3/uL Normal 150-450 [facility] Comment on above: Performed By: #### L 100.0100, L500.2500 #### [facility] [address] [place], [address] RBC (Bld) [#/Vol] 4.46 10*6/uL Low 4.6-6.2 [facility] [place] Comment on above: Performed By: #### L 100.0100, L500.2500 #### [facility] [address] [place], [address] RDW SD 43.7 fl Normal 35.1-43.9 [facility] Comment on above: Performed By: #### L 100.0100, L500.2500 #### [facility] [address] [place], [address] WBC (Bld) [#/Vol] 13.9 10*3/uL High 4.4-11.0 [facility] Comment on above: Performed By: #### L 100.0100, L500.2500 #### [facility] [address] [place], [address] Carbon dioxide, total [Moles /volume] in Central venous bloodOrdered By: Mckenzie Harper on 06-18-2025 CO2 [Moles/Vol] 23.4 mmol/L 21.0-32.0 [facility] Chloride assayOrdered By: Tito Harper on 06-18-2025 Chloride [Moles/Vol] 104 mmol/L 98-108 [facility] Emergency Department Summary on 06-18-2025 Emergency Department Summary [facility] Medical Records Department [address] [place] [address] Emergency Department Summary 06/18/25 MR#: [id number] Acct: [id number] Name: JAY PIÑAN Rep #: [id number] : 1940 84 From: Mckenzie Harper MD PCP: Dr. Lalo Chou MD Status:DEP ER Location: ED HPI History of Present Illness Chief Complaint: Complaint Narrative Narrative: Patient is a 84-year-old male presenting to the emergency department for hematuria and confusion. Patient has a past medical history of right lower extremity DVT and bladder cancer. Patient had surgery in 2009 for his bladder cancer and is not on any chemotherapy or radiation. He is not on any oral anticoagulation. He was here 3 days ago for urinary retention and had a camacho placed. states since then he has had lots of hematuria and increased confusion that started today. Denies fever, chills, nausea, vomiting, abdominal pain, lightheadedness. PFSH PFS Medical History Bladder cancer Polyarthritis DVT (deep venous thrombosis) History of paresthesia Home Medications ???Medication ???Instructions ???Recorded ???Last Taken ???Type cephalexin 500 mg capsule 500 mg PO Q6 #40 CAPSULES 06/18/25 Unknown Rx Allergy/AdvReac Type Severity Reaction Status Date / Time Sulfa (Sulfonamide AdvReac Rash Verified 06/18/25 18:37 Antibiotics) Family History Mother Cerebral hemorrhage Hypertension Father Lung cancer Brother Prostate cancer Heart disease Surgical History History of bilateral inguinal hernia repair Social History Smoking Status: Former smoker ROS ROS ED ROS Narrative See HPI EXAM Physical Exam Narrative Exam Narrative: Vital signs: Reviewed General: Alert and orientedx3. No acute distress HEENT: Head is normocephalic and atraumatic, sinuses nontender, pupils equal round and reactive. Nares are patent. Oropharynx and throat exams normal. Neck: Supple without lymphadenopathy nontender Cardiovascular: Regular rate and rhythm, no murmurs. No rubs or gallops. Normal S1 and S2 Respiratory: Clear to auscultation bilaterally. No wheezes, rales, rhonchi Abdominal: Soft and nontender. Normal bowel sounds. No guarding or rebound. Nonsurgical abdomen : Camacho catheter in place draining light pinkish red urine. No clots. Extremities: No tenderness. No bruising. Normal range of motion. Normal sensation. Skin: No rash or redness. Neurological: Cranial nerves II through XII are grossly intact. Normal strength and sensation. Normal cerebellar function The rest of the physical exam is unremarkable Const Vital Signs: 06/18/25 18:37 06/18/25 18:41 06/18/25 19:41 Temperature 98.6 F 98.6 F 98.6 F Temperature Source Oral Oral Oral Pulse Rate 81 81 62 Respiratory Rate 18 18 16 Blood Pressure 141/70 H 141/70 H 137/74 H Blood Pressure Mean 93 93 95 Pulse Ox 95 95 100 Oxygen Delivery Method Room Air Room Air Room Air 06/18/25 20:18 Temperature 98.6 F Temperature Source Pulse Rate 62 Respiratory Rate 16 Blood Pressure 157/75 H Blood Pressure Mean 102 Pulse Ox 100 Oxygen Delivery Method MDM MDM MDM Narrative Medical decision making narrative: Patient is a 84-year-old male presenting to the emergency department for hematuria and intermittent confusion that started today. Patient was seen and examined. Vitals are stable. Patient resting in bed comfortably in no acute distress. Patient had urinary retention approximately 3 days ago and had a Camacho catheter placed. He is at high risk for urinary tract infection given this. He is now having some intermittent confusion today per . Concern at this time would be for a urinary tract infection. He has no abdominal pain on exam. Has no signs of systemic infection including fever or chills. Will check CBC for both infection and to monitor hemoglobin given continued hematuria. Will check BMP for kidney function and urinalysis. CBC with a mild leukocytosis of 13.9 and a normal hemoglobin. BMP with no significant abnormalities. Normal kidney function. Urinalysis with WBCs, leukocyte esterase and occult blood as well as RBCs. Urine culture sent. Given the patient's mild leukocytosis, high risk for urinary tract infection given his Camacho catheter and his new intermittent confusion will treat for UTI. Given first dose of keflex here. No signs of sepsis. Will prescribe for 10 days for home. Instructed to follow up with urologist as soon as possible and return to the ED with any new or worsening symptoms including fever, chills, abdominal pain, nausea, vomiting, worsening co (more content not included)... Normal [facility] Eosinophil percentageOrdered By: Mckenzie Harper on 06-18-2025 Eosinophils/100 WBC (Bld) 0.4 % 0-5 [facility] Erythrocyte distribution wid th ratioOrdered By: Mckenzie Harper on 06-18-2025 Erythrocyte distribution width (RBC) [Ratio] 13.2 % 11.6-14.6 [facility] Erythrocyte distribution wid th standard deviationOrdered By: Mckenzie Harper on 06-18-2025 Erythrocyte distribution width (RBC) [Ratio] 43.7 fl 35.1-43.9 [facility] Glomerular filtration rate ( GFR) estimation/1.73 sq m using serum, plasma, or whole bOrdered By: Mckenzie Harper on 06-18-2025 GFR/1.73 sq M.predicted among non-blacks MDRD (S/P/Bld) [Vol rate/Area] 85 mL/min/{1.73_m2} >60 [facility] Comment on above: mL/min/1.73m2 CKD-EP I Creatinine Equation (2020) Hematocrit Auto (Bld) [Volum e fraction]Ordered By: Mckenzie Harper on 06-18-2025 Hematocrit (Bld) [Volume fraction] 39.9 % Low 40-54 [facility] Hemoglobin measurementOrdere d By: Mckenzie Harper on 06-18-2025 Hemoglobin (Bld) [Mass/Vol] 13.6 g/dL 13.0-16.5 [facility] Immature granulocytes/100 WB C Auto (Bld)Ordered By: Mckenzie Harper on 06-18-2025 Immature granulocytes/100 WBC (Bld) 0.300 % 0.0-0.9 [facility] Comment on above: IG% - Immature Granu locytes (promyelocytes, myelocytes and metamyelocytes) > 1% indicates that a LEFT SHIFT is Present. Ketones Test strip Ql (U)Ord ered By: Mckenzie Harper on 06-18-2025 Ketones Ql (U) Negative Negative [facility] MCV (mean corpuscular volume ) determinationOrdered By: Mckenzie Harper on 06-18-2025 MCV (RBC) [Entitic vol] 89.5 fL 80-94 [facility] Mean corpuscular hemoglobin (MCH) determinationOrdered By: Mckenzie Harper on 06-18-2025 MCH (RBC) [Entitic mass] 30.5 pg 27.0-32.0 [facility] Mean corpuscular hemoglobin concentration (MCHC) determinationOrdered By: Mckenzie Harper on 06-18-2025 MCHC (RBC) [Mass/Vol] 34.1 g/dL 32-36 [facility] Mean platelet volume determi nationOrdered By: Mckenzie Harper on 06-18-2025 Platelet mean volume (Bld) [Entitic vol] 10.5 fL 6.2-12.0 [facility] Microscopic analysis of urin e for red blood cells (RBC)Ordered By: Mckenzie Harper on 06-18-2025 Microscopic analysis of urine for red blood cells (RBC) 10-25 SEEN /hpf 0-5 [facility] Monocyte percentageOrdered B y: Mckenzie Harper on 06-18-2025 Monocytes/100 WBC (Bld) 9.8 % 0-10 [facility] Mucus LM Ql (Urine sed)Order ed By: Mckenzie Harper on 06-18-2025 Mucus Ql (Urine sed) 0 SEEN /hpf [facility] Neutrophil percentageOrdered By: Mckenzie Harper on 06-18-2025 Neutrophils/100 WBC (Bld) 74.8 % High 47-70 [facility] Nitrite Test strip Ql (U)Ord ered By: Mckenzie Harper on 06-18-2025 Nitrite Ql (U) Negative Negative [facility] Nucleated red blood cell per centageOrdered By: Mckenzie Harper on 06-18-2025 Nucleated RBC/100 WBC (Bld) [Ratio] 0 % 0-5 [facility] Platelet countOrdered By: Tito Harper on 06-18-2025 Platelets (Bld) [#/Vol] 264 10*3/uL 150-450 [facility] Potassium measurement (mass/ volume)Ordered By: Mckenzie Harper on 06-18-2025 Potassium (Unsp spec) [Mass/Vol] 4.0 mmol/L 3.3-5.1 [facility] Protein Test strip Ql (U)Ord ered By: Mckenzie Harper on 06-18-2025 Protein Ql (U) 100 mg/dl High Negative [facility] RBC Auto (Bld) [#/Vol]Ordere d By: Mckenzie Harper on 06-18-2025 RBC (Bld) [#/Vol] 4.46 10*6/uL Low 4.6-6.2 [facility] Serum creatinine measurement (mass/volume)Ordered By: Mckenzie Harper on 06-18-2025 Creatinine [Mass/Vol] 0.84 mg/dL 0.70-1.20 [facility] Serum glucose measurement (m ass/volume)Ordered By: Mckenzie Harper on 06-18-2025 Glucose [Mass/Vol] 121 mg/dL High 70-99 [facility] Serum or plasma calcium magnolia urement (mass/volume)Ordered By: Mckenzie Harper on 06-18-2025 Calcium [Mass/Vol] 9.6 mg/dL 7.6-11.0 [facility] Serum or plasma urea nitroge n measurement (mass/volume)Ordered By: Mckenzie Harper on 06-18-2025 Urea nitrogen [Mass/Vol] 15 mg/dL 4-19 [facility] Sodium levelOrdered By: Lalo Harper on 06-18-2025 Sodium [Moles/Vol] 139 mmol/L 133-145 [facility] Squamous epithelial cells de tection in urine sediment by light microscopyOrdered By: Mckenzie Harper on 06-18-2025 Epithelial cells.squamous LM Ql (Urine sed) 0 SEEN /hpf 0-5 [facility] Urinalysis, Completeon 06-18 RBC 10-25 SEEN Normal 0-5 [facility] Comment on above: Order Comment: COLOR OF URINE MAY AFFECT DIPSTICK RESULTS. CATHETER SPECIMEN Performed By: #### L 400.0001 #### [facility] [address] [place], [address] WBC >100 SEEN Normal 0-5 [facility] Comment on above: Order Comment: COLOR OF URINE MAY AFFECT DIPSTICK RESULTS. CATHETER SPECIMEN Performed By: #### L 400.0001 #### [facility] [address] [place], [address] BACTERIA 0 SEEN Normal None Seen [facility] Comment on above: Order Comment: COLOR OF URINE MAY AFFECT DIPSTICK RESULTS. CATHETER SPECIMEN Performed By: #### L 400.0001 #### [facility] [address] [place], [address] EPI,SQUAMOUS 0 SEEN Normal 0-5 [facility] Comment on above: Order Comment: COLOR OF URINE MAY AFFECT DIPSTICK RESULTS. CATHETER SPECIMEN Performed By: #### L 400.0001 #### [facility] [address] [place], [address] Mucus Ql (Urine sed) 0 SEEN Normal [facility] Comment on above: Order Comment: COLOR OF URINE MAY AFFECT DIPSTICK RESULTS. CATHETER SPECIMEN Performed By: #### L 400.0001 #### [facility] [address] [place], [address] Urine clarityOrdered By: Seema Harper on 06-18-2025 Clarity (U) Cloudy Clear [facility] Urine color determinationOrd ered By: Mckenzie Harper on 06-18-2025 Color (U) Red Yellow [facility] Urine glucose detectionOrder ed By: Mckenzie Harper on 06-18-2025 Glucose Ql (U) Normal mg/dl Normal [facility] Urine leukocyte esterase det ection by dipstickOrdered By: Mckenzie Harper on 06-18-2025 Leukocyte esterase Test strip Ql (U) 500 /ul High Negative [facility] Urine pHOrdered By: Mckenzie jones on 06-18-2025 pH (U) 7.0 [pH] 5.0 - 8.0 [facility] Urine sediment bacteria coun t by microscopy (number/high power field)Ordered By: Mckenzie Harper on 06-18-2025 Bacteria LM.HPF (Urine sed) [#/Area] 0 /[HPF] None Seen [facility] Urine specific gravity measu rementOrdered By: Mckenzie Harper on 06-18-2025 Specific gravity (U) [Rel density] 1.010 1.002-1.030 [facility] Urine urobilinogen measureme ntOrdered By: Mckenzie Harper on 06-18-2025 Urobilinogen Ql (U) Normal mg/dl Normal [facility] White blood cell (WBC) count Ordered By: Mckenzie Harper on 06-18-2025 WBC (Bld) [#/Vol] 13.9 10*3/uL High 4.4-11.0 [facility] [place] White blood cell countOrdere d By: Mckenzie Harper on 06-18-2025 White blood cell count >100 SEEN /hpf 0-5 [facility] Emergency Department Summary on 06-17-2025 Emergency Department Summary [facility] Medical Records Department [address] [place] [address] Emergency Department Summary 06/17/25 MR#: [id number] Acct: [id number] Name: JAY PIÑA ENID Rep #: [id number] : 1940 84 From: Marc Siddiqui DO PCP: Dr. Lalo Chou MD Status:DEP ER Location: ED HPI History of Present Illness Chief Complaint: Complaint Informant: patient and spouse/S.O. Narrative Narrative: Patient is 84-year-old male with previous history of right lower extremity DVT and bladder cancer. Patient had surgery in 2009 regarding this and is not on chemotherapy or radiation nor does he take anticoagulation. He states that today he went from urinating normally to just dribbling. He states over the last few hours he has had increasing abdominal pain and distention. He denies taking any new medications or recent trauma or surgical procedures. He denies any previous history of urinary retention. However as he cannot urinate and is having increasing pain he presents for evaluation [facility] Medical History Bladder cancer Polyarthritis DVT (deep venous thrombosis) History of paresthesia Home Medications ???Medication ???Instructions ???Recorded ???Last Taken ???Type apixaban 5 mg tablet 5 mg PO BID 06/08/19 Unknown Histo ry tamsulosin 0.4 mg capsule (Flomax) 0.4 mg PO DAILY 30 days #30 caps 06/17/25 Unknown Rx Allergy/AdvReac Type Severity Reaction Status Date / Time Sulfa (Sulfonamide AdvReac Rash Verified 11/20/19 10:25 Antibiotics) Family History Mother Cerebral hemorrhage Hypertension Father Lung cancer Brother Prostate cancer Heart disease Surgical History History of bilateral inguinal hernia repair Social History Smoking Status: Former smoker ROS ROS ED Constitutional Constitutional ED: Denies chills or fever(s) Eyes Eyes: Denies change in vision ENT ENT ED: Denies sore throat Cardiovascular Cardiovascular: Denies chest pain Respiratory/Chest Respiratory/Chest: Denies cough or dyspnea Gastrointestinal Gastrointestinal: Reports abdominal pain; Denies diarrhea, nausea or vomiting Genitourinary Genitourinary ED: Reports other Details: Positive difficulty urinating/urinary hesitancy Musculoskeletal Musculoskeletal: Denies back pain Integumentary Denies rash Neurologic Neurologic: Denies headache(s) Hematologic/Lymphat ic Hematologic/Lymphat ic: Denies easy bleeding or easy bruising EXAM Physical Exam Const Vital Signs: 06/17/25 00:17 06/17/25 01:27 Temperature 98 F 98.0 F Temperature Source Temporal Pulse Rate 75 70 Respiratory Rate 18 18 Blood Pressure 135/108 H 137/76 H Blood Pressure Mean 117 96 Pulse Ox 98 98 Oxygen Delivery Method Room Air Positive well nourished and well developed General Appearance ED: well developed; Negative for pallor HEENT HEENT Narrative: Normocephalic atraumatic Eyes PERRL and EOMs intact bilaterally General Eye ED: Negative for scleral icterus Neck supple Resp normal respiratory effort and clear to auscultation bilaterally Cardio regular rate and regular rhythm GI non-distended GI Narrative: In the midline of the lower abdomen there is organomegaly with distention of the bladder up to just below the umbilicus consistent with acute urinary retention. There is pain with palpation at this site. Otherwise the abdomen is soft nontender and nondistended with normal active bowel sounds. Auscultation: normoactive bowel sounds Palpation: soft Narrative: No blood or discharge from the urethral meatus No testicular swelling or masses noted Back/Spine no CVA tenderness Extremity normal to inspection Neuro oriented x3 and CN's II-XII intact bilaterally Sensorium / Orientation: alert Psych mental status grossly normal Skin no rashes or lesions noted General Skin Exam: Negative for jaundice or pallor MDM MDM MDM Narrative Medical decision making narrative: Patient reported increasing abdominal pain and the inability to void normally. He stated that the symptoms have been present only for a few hours and therefore my concern for acute kidney injury is low. Also symptoms only and present for a few hours and he is afebrile concern for UTI is low and I do not feel the need for blood work or urine sample. The patient's history and exam is consistent with acute urinary retention and therefore Camacho catheter was placed. 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 The catheter will be kept in place to prevent reoccurrence of the acute urinary retention but as the patient's bladder has not been drained and vitals are stable (more content not included)... Normal [facility] PSA,Total- Diagnosticon 06-0 PSA, DIAGNOSTIC 6.75 ng/mL High 0.00-4.00 [facility] Comment on above: Order Comment: Order Date: [...] values. Performed By: #### L 501.9940 #### [facility] [address] [place], [place], [address] CBC W/Diff, Automatedon 09-02 Absolute Lymph 2.70 X10 3/uL Normal 0.83-4.51 [facility] Comment on above: Order Comment: Order Date: 09/13/24 Order Info: 0184-1 - CBCD Performed By: #### L 501.9910, L100.0100, L500.4050 #### [facility] [address] [place], [address] Absolute Neut 5.7 X10 3/uL Normal 2.0-7.7 [facility] Comment on above: Order Comment: Order Date: 09/13/24 Order Info: 0184-1 - CBCD Performed By: #### L 501.9910, L100.0100, L500.4050 #### [facility] [address] [place], [address] Basophils/100 WBC (Bld) 0.9 % Normal 0-1 [facility] Comment on above: Order Comment: Order Date: 09/13/24 Order Info: 0184-1 - CBCD Performed By: #### L 501.9910, L100.0100, L500.4050 #### [facility] [address] [place], [address] Eosinophils/100 WBC (Bld) 2.2 % Normal 0-5 [facility] Comment on above: Order Comment: Order Date: 09/13/24 Order Info: 018-1 - CBCD Performed By: #### L 501.9910, L100.0100, L500.4050 #### [facility] [address] [place], [address] Erythrocyte distribution width (RBC) [Ratio] 12.8 % Normal 11.6-14.6 [facility] Comment on above: Order Comment: Order Date: 09/13/24 Order Info: 0184-1 - CBCD Performed By: #### L 501.9910, L100.0100, L500.4050 #### [facility] [address] [place], [address] Hematocrit (Bld) [Volume fraction] 45.8 % Normal 40-54 [facility] Comment on above: Order Comment: Order Date: 09/13/24 Order Info: 0184-1 - CBCD Performed By: #### L 501.9910, L100.0100, L500.4050 #### [facility] [address] [place], [address] Hemoglobin (Bld) [Mass/Vol] 14.6 g/dL Normal 13.0-16.5 [facility] Comment on above: Order Comment: Order Date: 09/13/24 Order Info: 018- - CBCD Performed By: #### L 501.9910, L100.0100, L500.4050 #### [facility] [address] [place], [address] IG% 0.200 Normal 0.0-0.9 [facility] Comment on above: Order Comment: Order Date: 09/13/24 Order Info: 018- - CBCD Result Comment: IG% - Immature Granulocytes (promyelocytes, myelocytes and metamyelocytes) > 1% indicates that a LEFT SHIFT is Present. Performed By: #### L 501.9910, L100.0100, L500.4050 #### [facility] [address] [place], [address] Lymphocytes/100 WBC (Bld) 28.3 % Normal 19-41 [facility] Comment on above: Order Comment: Order Date: 09/13/24 Order Info: 018- - CBCD Performed By: #### L 501.9910, L100.0100, L500.4050 #### [facility] [address] [place], [address] MCH (RBC) [Entitic mass] 29.7 pg Normal 27.0-32.0 [facility] Comment on above: Order Comment: Order Date: 09/13/24 Order Info: 018- - CBCD Performed By: #### L 501.9910, L100.0100, L500.4050 #### [facility] [address] [place], [address] MCHC (RBC) [Mass/Vol] 31.9 g/dL Low 32-36 [facility] Comment on above: Order Comment: Order Date: 09/13/24 Order Info: 018- - CBCD Performed By: #### L 501.9910, L100.0100, L500.4050 #### [facility] [address] [place], [address] MCV (RBC) [Entitic vol] 93.1 fL Normal 80-94 [facility] Comment on above: Order Comment: Order Date: 09/13/24 Order Info: 0184-1 - CBCD Performed By: #### L 501.9910, L100.0100, L500.4050 #### [facility] [address] [place], [address] Monocytes/100 WBC (Bld) 8.9 % Normal 0-10 [facility] Comment on above: Order Comment: Order Date: 09/13/24 Order Info: 0184- - CBCD Performed By: #### L 501.9910, L100.0100, L500.4050 #### [facility] [address] [place], [address] Neutrophils/100 WBC (Bld) 59.5 % Normal 47-70 [facility] Comment on above: Order Comment: Order Date: 09/13/24 Order Info: 0184- - CBCD Performed By: #### L 501.9910, L100.0100, L500.4050 #### [facility] [address] [place], [address] Nucleated RBC (Bld) [#/Vol] 0 10*3/uL Normal 0-5 [facility] Comment on above: Order Comment: Order Date: 09/13/24 Order Info: 0184-1 - CBCD Performed By: #### L 501.9910, L100.0100, L500.4050 #### [facility] [address] [place], [address] Platelet mean volume (Bld) [Entitic vol] 10.7 fL Normal 6.2-12.0 [facility] Comment on above: Order Comment: Order Date: 09/13/24 Order Info: 0184-1 - CBCD Performed By: #### L 501.9910, L100.0100, L500.4050 #### [facility] [address] [place], [address] Platelets (Bld) [#/Vol] 278 10*3/uL Normal 150-450 [facility] Comment on above: Order Comment: Order Date: 09/13/24 Order Info: 0184-1 - CBCD Performed By: #### L 501.9910, L100.0100, L500.4050 #### [facility] [address] [place], [address] RBC (Bld) [#/Vol] 4.92 10*6/uL Normal 4.6-6.2 [facility] [place] Comment on above: Order Comment: Order Date: 09/13/24 Order Info: 0184-1 - CBCD Performed By: #### L 501.9910, L100.0100, L500.4050 #### [facility] [address] [place], [address] RDW SD 43.8 fl Normal 35.1-43.9 [facility] Comment on above: Order Comment: Order Date: 09/13/24 Order Info: 0184-1 - CBCD Performed By: #### L 501.9910, L100.0100, L500.4050 #### [facility] [address] [place], [address] WBC (Bld) [#/Vol] 9.5 10*3/uL Normal 4.4-11.0 [facility] Comment on above: Order Comment: Order Date: 09/13/24 Order Info: 0184-1 - CBCD Performed By: #### L 501.9910, L100.0100, L500.4050 #### [facility] [address] [place], [address] Chest PA and Lateralon 09-13 Chest PA and Lateral [facility] Imaging Services [address] [place], [place] [address] Chest PA and Lateral MR#: [id number] Acct: [id number] Name: JAY PIÑA Rep #: [id number] : 1940 M 84 From: Richard Casillas MD PCP: Dr. Lalo Chou MD Status: REG CLI Study: Chest PA and Lateral Date of Exam: 09/13/24 Exam# [id number] Ordering Dr: Lalo Chou MD -[id number] EXAM: XR CHEST, 2 VIEWS CLINICAL INDICATION: [...] Signed: Richard Casillas MD at 11:22 EST Reading Location ID and State: [facility] / [place] Tel , Service support , CC: Dr. Lalo Chou MD Card Painter: Signed Normal [facility] Comprehensive Metabolic Prof ilon 09-13-2024 Albumin [Mass/Vol] 3.8 g/dL Normal 3.2-5.0 [facility] Comment on above: Order Comment: Order Date: 09/13/24 Order Info: 0786-1 - CMP Order Info: 2857-1 - PSA Performed By: #### L 501.9910, L100.0100, L500.4050 #### [facility] [address] [place], [place], [address] Albumin/Globulin [Mass ratio] 1.2 {ratio} Normal 0.9-2.4 [facility] Comment on above: Order Comment: Order Date: 09/13/24 Order Info: 0786-1 - CMP Order Info: 285- - PSA Performed By: #### L 501.9910, L100.0100, L500.4050 #### [facility] [address] [place], [address] ALK P 88 U/L Normal 45-117 [facility] Comment on above: Order Comment: Order Date: 09/13/24 Order Info: 07- - CMP Order Info: 28504-02 - PSA Performed By: #### L 501.9910, L100.0100, L500.4050 #### [facility] [address] [place], [address] ALT [Catalytic activity/Vol] 15 U/L Low 16-61 [facility] Comment on above: Order Comment: Order Date: 09/13/24 Order Info: 0786- - CMP Order Info: 28504-02 - PSA Performed By: #### L 501.9910, L100.0100, L500.4050 #### [facility] [address] [place], [address] AST [Catalytic activity/Vol] 15 U/L Normal 15-37 [facility] Comment on above: Order Comment: Order Date: 09/13/24 Order Info: 0786- - CMP Order Info: 28504-02 - PSA Performed By: #### L 501.9910, L100.0100, L500.4050 #### [facility] [address] [place], [address] Bilirubin [Mass/Vol] 0.40 mg/dL Normal 0.20-1.00 [facility] Comment on above: Order Comment: Order Date: 09/13/24 Order Info: 0786-1 - CMP Order Info: 2857-1 - PSA Result Comment: For patients on eltrombopag therapy, use of Dimension [place] TBIL is not recommended. Performed By: #### L 501.9910, L100.0100, L500.4050 #### [facility] [address] [place], [address] BUN/CRE 25.3 RATIO High 10-20 [facility] Comment on above: Order Comment: Order Date: 09/13/24 Order Info: 0786- - CMP Order Info: 2856-10 - PSA Performed By: #### L 501.9910, L100.0100, L500.4050 #### [facility] [address] [place], [address] CA,Total 9.6 mg/dL Normal 8.5-10.1 [facility] Comment on above: Order Comment: Order Date: 09/13/24 Order Info: 07 - CMP Order Info: 2856-10 - PSA Performed By: #### L 501.9910, L100.0100, L500.4050 #### [facility] [address] [place], [address] Chloride [Moles/Vol] 106 mmol/L Normal 98-107 [facility] Comment on above: Order Comment: Order Date: 09/13/24 Order Info: 0786- - CMP Order Info: 2856-10 - PSA Performed By: #### L 501.9910, L100.0100, L500.4050 #### [facility] [address] [place], [address] CO2 [Moles/Vol] 28.0 mmol/L Normal 21.0-32.0 [facility] Comment on above: Order Comment: Order Date: 09/13/24 Order Info: 0786- - CMP Order Info: 2851 - PSA Performed By: #### L 501.9910, L100.0100, L500.4050 #### [facility] [address] [place], [address] Creatinine [Mass/Vol] 0.95 mg/dL Normal 0.70-1.30 [facility] Comment on above: Order Comment: Order Date: 09/13/24 Order Info: 0786- - CMP Order Info: 28504-02 - PSA Result Comment: The validity of the calculated GFR GFRAA in patients over 70 years has not been determined. Clinical correlation is essential. Performed By: #### L 501.9910, L100.0100, L500.4050 #### [facility] [address] [place], [address] EST GFR - AA 97 mL/min Normal >60 [facility] Comment on above: Order Comment: Order Date: 09/13/24 Order Info: 0786 - CMP Order Info: 28504-02 - PSA Result Comment: Afri can Kyr[place]z GFR Calc Performed By: #### L 501.9910, L100.0100, L500.4050 #### [facility] [address] [place], [address] GAP 6 Normal 5-15 [facility] Comment on above: Order Comment: Order Date: 09/13/24 Order Info: 0786- - CMP Order Info: 28504-02 - PSA Performed By: #### L 501.9910, L100.0100, L500.4050 #### [facility] [address] [place], [address] GFR/1.73 sq M.predicted among non-blacks MDRD (S/P/Bld) [Vol rate/Area] 80 mL/min/{1.73_m2} Normal >60 [facility] Comment on above: Order Comment: Order Date: 09/13/24 Order Info: 0786- - CMP Order Info: 28504-02 - PSA Result Comment: Non- GFR Calc Performed By: #### L 501.9910, L100.0100, L500.4050 #### [facility] [address] [place], [address] Globulin (S) [Mass/Vol] 3.3 g/dL Normal 2.2-4.2 [facility] Comment on above: Order Comment: Order Date: 09/13/24 Order Info: 0786- - CMP Order Info: 28504-02 - PSA Performed By: #### L 501.9910, L100.0100, L500.4050 #### [facility] [address] [place], [address] Glucose [Mass/Vol] 109 mg/dL High 74-106 [facility] Comment on above: Order Comment: Order Date: 09/13/24 Order Info: 0786 - CMP Order Info: 28504-02 - PSA Result Comment: Fast ing Glucose result from 100 to 125 mg/dL suggests IMPAIRED HOMEOSTASIS per A.D.A. criteria. Performed By: #### L 501.9910, L100.0100, L500.4050 #### [facility] [address] [place], [address] Potassium [Moles/Vol] 4.3 mmol/L Normal 3.5-5.1 [facility] Comment on above: Order Comment: Order Date: 09/13/24 Order Info: 0786- - CMP Order Info: 28504-02 - PSA Performed By: #### L 501.9910, L100.0100, L500.4050 #### [facility] [address] [place], [address] Sodium [Moles/Vol] 139 mmol/L Normal 136-145 [facility] Comment on above: Order Comment: Order Date: 09/13/24 Order Info: 0786- - CMP Order Info: 28504-02 - PSA Performed By: #### L 501.9910, L100.0100, L500.4050 #### [facility] [address] [place], [address] T PROT 7.1 g/dL Normal 6.4-8.2 [facility] Comment on above: Order Comment: Order Date: 09/13/24 Order Info: 0786-1 - CMP Order Info: 2857-1 - PSA Performed By: #### L 501.9910, L100.0100, L500.4050 #### [facility] [address] [place], [address] Urea nitrogen [Mass/Vol] 24 mg/dL High 7-18 [facility] Comment on above: Order Comment: Order Date: 09/13/24 Order Info: 0786-1 - CMP Order Info: 28504-02 - PSA Performed By: #### L 501.9910, L100.0100, L500.4050 #### [facility] [address], [address] PSA,Total - Annual Screenon 09-13-2024 PSA,TOT SCREEN 6.14 ng/mL High 0.00-4.00 [facility] Comment on above: Order Comment: Order Date: 09/13/24 Order Info: 0786-1 - CMP Order Info: [id number] - PSA Result Comment: This test was performed using the TPSA assay method for the [employer] chemistry system. Values obtained with different assay methods cannot be used interchangably. When changing PSA assays in the course of monitoring a patient, additional sequential testing should be carried out to confirm baseline values. Performed By: #### L 501.9910, L100.0100, L500.4050 #### [facility] [address], [address] Basophil percentageon 2021 Cholesterol [Mass/Vol] 160 mg/dL <200 [facility] Work Phone: Comment on above: <200 mg/dL Desirable 200-240 mg/dL Borderline >240 mg/dL High Risk Triglyceride [Mass/Vol] 65 mg/dL <199 [facility] Work Phone: Comment on above: The drugs N-Acetylcy steine and Metamizole may falsely depress this assay.Serum Triglycerides Reference Interval Normal <150 mg/dL Borderline high 150 - 199 mg/dL High 200 - 499 mg/dL Very High > or = 500 mg/dL Laboratory - Chemistry and C hemistry - challengeon 09-06-2022 Free T4 [Mass/Vol] 0.90 ng/dL 0.76-1.46 [facility] Work Phone: No Panel Informationon 09-06 Estimated GFR (MDRD) Amer 118 mL/min >60 [facility] Work Phone: Comment on above: GFR Calc Estimated GFR (MDRD) Non-Af Amer 98 mL/min >60 [facility] Work Phone: Comment on above: Non- GFR Calc Thyroid Stimulating Hormone (TSH) 2.36 uIU/mL 0.358-3.74 [facility] Work Phone: Serum or plasma cholesterol in HDL measurement (mass/volume)on 09-06-2022 Cholesterol in HDL [Mass/Vol] 42 mg/dL >40 [facility] Work Phone: Comment on above: The drugs N-Acetylcy steine and Metamizole may falsely depress this assay. Reference Range HDL <40 mg/dL Low HDL Cholesterol HDL >or= 60 mg/dL High HDL Cholesterol Serum or plasma cholesterol in VLDL measurement (mass/volume)on 09-06-2022 Cholesterol in VLDL [Mass/Vol] 13 mg/dL 5-40 [facility] Work Phone: Serum or plasma creatinine m easurement (mass/volume)on 09-06-2022 Creatinine [Mass/Vol] 0.80 mg/dL 0.70-1.30 [facility] Work Phone: Comment on above: The validity of the calculated GFR & GFRAA in patients over 70 years has not been determined. Clinical correlation is essential. Serum or plasma low density lipoprotein (LDL) cholesterol measurement (mass/volume)on 09-06-2022 Cholesterol in LDL [Mass/Vol] 105 mg/dL 0-130 [facility] Work Phone: Office Visit: naomi on backon 07-07-2017 Fall risk assessment No Invalid Interpretation Code [facility] Work Phone: Protein mass conc T Invalid Interpretation Code [facility] Work Phone: Protein mass conc Done Invalid Interpretation Code [facility] Work Phone: Tobacco smoking status NHIS Never Invalid Interpretation Code [facility] Work Phone: Tobacco smoking status NHIS Former smoker Invalid Interpretation Code [facility] Work Phone: Vital Signs Date Time Vital Sign Value Performing Clinician Facility 06-18-2025 20:18-0400 Body temperature 98.6 [degF] Dr. Lalo Chou MD Work Phone: [phone] [address] 06-18-2025 20:18-0400 Diastolic blood pressure 75 mm[Hg] Dr. Lalo Chou MD Work Phone: 4(131)[phone] [address] 06-18-2025 20:18-0400 Heart rate 62 /min Dr. Lalo Chou MD Work Phone: 1(794)[phone] [address] 06-18-2025 20:18-0400 Respiratory rate 16 /min Dr. Lalo Chou MD Work Phone: 4([phone])[phone] [address] 06-18-2025 20:18-0400 SaO2% (BldA) [Mass fraction] 100 % Dr. Lalo Chou MD Work Phone: 0([phone])[phone] [place] [address] 06-18-2025 20:18-0400 Systolic blood pressure 157 mm[Hg] Dr. Lalo Chou MD Work Phone: [facility] 06-18-2025 18:37-0400 Body height 180.[address] Lalo Chou MD Work Phone: [facility] 06-18-2025 18:37-0400 Body mass index (BMI) [Ratio] 16.4 kg/m2 Dr. Lalo Chou MD Work Phone: [facility] 06-18-2025 18:37-0400 Body weight 53.[address] Lalo Chou MD Work Phone: [phone] [address] 06-17-2025 01:27-0400 Body temperature 98 [degF] Dr. Lalo Chou MD Work Phone: [facility] 06-17-2025 01:27-0400 Diastolic blood pressure 76 mm[Hg] Dr. Lalo Chou MD Work Phone: [facility] 06-17-2025 01:27-0400 Heart rate 70 /min Dr. Lalo Chou MD Work Phone: [facility] 06-17-2025 01:27-0400 Respiratory rate 18 /min Dr. Lalo Chou MD Work Phone: [facility] 06-17-2025 01:27-0400 SaO2% (BldA) [Mass fraction] 98 % Dr. Lalo Chou MD Work Phone: [facility] 06-17-2025 01:27-0400 Systolic blood pressure 137 mm[Hg] Dr. Lalo Chou MD Work Phone: [phone] [place] [address] 06-17-2025 00:17-0400 Body height 180.[address] Lalo Chou MD Work Phone: [facility] 06-17-2025 00:17-0400 Body mass index (BMI) [Ratio] 16.9 kg/m2 Dr. Lalo Chou MD Work Phone: [facility] 06-17-2025 00:17-0400 Body weight [address] Lalo Chou MD Work Phone: [facility] 07-07-2017 09:17-0400 BP Diastolic 83 mm[Hg] Bahman Heath MD [facility] Work Phone: 07-07-2017 09:17-0400 BP Systolic 151 mm[Hg] Bahman Heath MD [facility] Work Phone: 07-07-2017 09:17-0400 Pulse (Heart Rate) 61 /min Bahman Heath MD [facility] Work Phone: 07-07-2017 09:17-0400 Respiratory Rate 18 /min Bahman Heath MD [facility] [facility] Work Phone: Encounters Encounter Date Encounter Type Care Provider Facility Start: 06-18-2025 End: 06-18-2025 Emergency department patient visit Dr. Lalo Chou MD Work Phone: -Emergency Department Work Phone: Start: 06-17-2025 End: 06-17-2025 Emergency department patient visit Dr. Lalo Chou MD Work Phone: -Emergency Department Work Phone: Start: 03-11-2025 End: 03-11-[address] Lalo Chou MD Work Phone: [facility] Work Phone: Start: 03-11-2025 End: 03-11-[address] Lalo Chou MD -Laboratory [place] Work Phone: Start: 03-11-2025 End: 03-11-2025 ambulatory Lalo Chou Facility:[facility] Start: 09-13-2024 End: 09-13-2024 ambulatory [facility] Facility:[facility] Start: 06-14-2023 End: 06-14-2023 ambulatory [facility] Work Phone: Start: 06-14-2023 End: 06-14-2023 Patient encounter procedure [facility] Work Phone: Start: 09-06-2022 End: 09-06-2022 ambulatory [facility] Work Phone: Start: 09-06-2022 End: 09-06-2022 Patient encounter procedure [facility], [place] Procedures Date Procedure Procedure Detail Performing Clinician Start: 06-18-2025 Urnls dip stick/tabl et reagent auto microscopy Dr. Lalo Chou MD Work Phone: Start: 06-18-[address] Lalo Chou MD Work Phone: Start: 03-11-2025 Assay of prostate sp ecific [...] Treatment Date Care Activity Detail Author Start: 06-18-2025 End: 06-18-2025 [facility] Start: 06-18-2025 Bacteria identified in Urine by Culture Urine Culture [facility] Start: 06-17-2025 [facility] Start: 07-07-2017 End: 07-07-2017 Appointment Appointment [facility] Work Phone: Patient Education [facility] Work Phone: Urine culture [facility] Payers Date Payer Category Payer Self-pay [id number] 2024 Unknown [id number] Medicare [id number] Medicare [id number] Unknown VA AUTH REQUIR ED SEE NOTE [id number] Unknown [id number] Unknown [id number] Unknown [id number] Unknown [id number] Social History Date Type Detail Facility Start: 11-20-2019 End: 11-20-2019 Tobacco smoking status [facility] Unknown if ever smoked [facility] Start: 1940 Sex Assigned At Male [facility] Start: 11-20-2019 End: 06-18-2025 Tobacco smoking status NHIS Ex-smoker (finding) [facility] Mental Status Date Assessment Result Facility 06-18-2025 Cognitive function Voice/Name [facility] Work Phone: Evaluation note Note Date & Type Note Facility Evaluation note No assessment information availa ble [facility] Work Phone: Hospital Discharge instructions Note Date & Type Note Facility Hospital Discharge instructions Additional Instructions Please keep your Camacho catheter in place to prevent reoccurrence of your urinary retention. It is most likely due to an enlarged/irritated prostate and therefore take the Flomax/tamsulosin daily to help prevent this. Follow-up with urology for repeat evaluation and return to the ER should you have any further concerns [facility] Work Phone: Hospital Discharge instructions Note Date & Type Note Facility Hospital Discharge instructions Additional Instructions Take the antibiotic 4 times a day, every 6 hours for 10 days. Please follow-up with your urologist as soon as possible. Return to the ED with any new or worsening symptoms including fevers, chills, nausea, vomiting, abdominal pain. Your evaluation in the Emergency Department did not reveal any acute reason for admission. However, I want to emphasize that you may be early in the course of a disease process or illness even if it is not present. For this reason you should follow-up within 24 hours for reevaluation with either your primary care physician or if necessary back here in the Emergency Department. You should return to the Emergency Department immediately if your symptoms worsen or new symptoms develop. [facility] Work Phone: Reason for referral (narrative) Note Date & Type Note Facility Reason for referral (narrative) No reason for referral information available [facility] Work Phone: Family History No Family History Records Found Relationship Condition Age at Onset Recorded Date/T cassy mother Cerebral hemorrhage Unknown Hypertension Unknown father Malignant neoplasm of lung Unknown brother Malignant neoplasm of prostate Unknown Heart disease Unknown Advance Directives No Advanced Directives Records Found Advance Directive Response Recorded Date/ Time Living Will Yes August 06 2:41pm Power of Top Loader Yes August 06, 2019 2:41pm Advance Directive Response Recorded Date/ Time Living Will Yes August 06 3:41pm Power of Top Loader Yes August 06, 2019 3:41pm Advance Directive Response Recorded Date/ Time Do you have a Healthcare Power of Top Loader? Yes June 17, 2025 12:31am Advance Directive Response Recorded Date/ Time Do you have a Healthcare Power of Top Loader? Yes June 18, 2025 6:46pm Do you have a Healthcare Power of Top Loader? Yes June 17, 2025 12:31am Chief Complaint and Reason for Visit Chief Complaint ABNORMAL WEIGHT LOSS Chief Complaint Admit Date EORDER- PSA March 11, 2025 9:24a m Chief Complaint Admit Date EORDER- PSA March 11, 2025 9:24a m urinary June 17, 2025 12:17am Chief Complaint Admit Date EORDER- PSA March 11, 2025 9:24a m urinary June 17, 2025 12:17am hematuria, confusion June 18 6:34pm Summary Purpose Additional Source Comments Goals (unrecognized [...] March 11, 2025 End: March 11, 2025 Team Status: Active Member Role/Relationship Status Dates Dr. Lalo Chou MD Primary Care Provider Active Team Status: Inactive Member Role/Relationship Status Dates Dr. Lalo Chou MD Primary Care Provider Active Start: March 11, 2025 End: March 11, 2025 Dr. Lalo Chou MD Attending Provider Active St art: March 11, 2025 End: March 11, 2025 Dr. Lalo Chou MD Referring Provider Active St art: March 11, 2025 End: March 11, 2025 Team Status: Inactive Member Role/Relationship Status Dates Dr. Lalo Chou MD Primary Care Provider Active Start: June 17, 2025 End: June 17, 2025 Dr. Marc Siddiqui DO Emergency Provider Active Start: June 17, 2025 End: June 17, 2025 Team Status: Inactive Member Role/Relationship Status Dates Dr. Lalo Chou MD Primary Care Provider Active Start: June 18, 2025 End: June 18, 2025 Dr. Mckenzie Harper MD Emergency Provider Active S tart: June 18, 2025 End: June 18, 2025 (unrecognized sect ion and content) No Status Records Found INFORMATION SOURCE (unrecogn ized section and content) DATE CREATED AUTHOR 2025 [facility] FOR RECORDS PERTAINING TO PATIENTS WHO [...] BE BASED ON THE PRIMARY CLINICAL RECORDS. [employer] provides no warranty or guarantee of the accuracy or completeness of information in this document.
[2025-07-27 09:27] LABS: Differential Indicated SCAN CRITERIA MET
[2025-07-27 09:53] LABS: Anion Gap 13 (5-15); BUN 42 mg/dL (4-19); BUN/Creat Ratio 31.0 RATIO (10-20); Calcium,Total 9.4 mg/dL (7.6-11.0); Carbon Dioxide 23.6 mmol/L (21.0-32.0); Chloride 100 mmol/L (98-108); Estimated Creatinine Clearance 29.80 ml/min (50-250); Glucose 128 mg/dL (70-99); Potassium 4.9 mmol/L (3.3-5.1)
[2025-07-27 10:22] VITALS: BP 102/68; PULSE 92; RESP 22; TEMP 36.9; O2SAT 94
[2025-07-27 10:46] LABS: Mucous, Urine 0 SEEN /hpf (<or=2+); Red Blood Cells-Urine 0 SEEN /hpf (0-5); Squamous Epithelial Cells - UA 0 SEEN /hpf (0-5)
[2025-07-27 10:48] LABS: Color, Urine Yellow (Yellow); Glucose, Dipstick Normal (Normal); Ketone-Dipstick Negative (Negative); Leukocyte Esterase-Dipstick 500 /ul (Negative); Nitrite-Dipstick Positive (Negative); Occult Blood-Urine 250 /ul (Negative); Protein-Dipstick 100 mg/dl (Negative); Specific Gravity, Urine 1.010 (1.002-1.030); Urine Bilirubin Dipstick Negative (Negative)
[2025-07-27 12:30] VITALS: BP 102/68; PULSE 92; RESP 22; TEMP 36.9; O2SAT 94
--- NOTE | 2025-07-31 19:51 | ED.RN ---
Pts called and updated on new atx script being sent and instructions to complete new atx till completely gone. All questions answered.
== END 2025-07-27 12:32 | disposition home or self-care (01) ==
PROVIDERS: Emergency Provider Emergency Medicine; PCP Family Medicine; Visit Provider Emergency Medicine
DX: R53.1 Weakness (principal); N17.9 Acute kidney failure, unspecified; N39.0 Urinary tract infection, site not specified; R41.0 Disorientation, unspecified; Z87.891 Personal history of nicotine dependence; B96.5 Pseudomonas (aeruginosa) (mallei) (pseudomallei) as the cause of diseases classified elsewhere; B95.2 Enterococcus as the cause of diseases classified elsewhere; Z85.51 Personal history of malignant neoplasm of bladder
CPT/HCPCS: 71045; 80048; 81001; 83605; 85025; 87077; 87086; 87088; 87186; 93005; 96360; 99283; A4216